=== PATIENT | female | born 1990 | race Caucasian/White ===

== ENCOUNTER → 2019-02-06 | Outpatient (CLI) | payer SELFPAY ==
[2018-07-21 12:10] VITALS: BMI 23.4
[2019-02-06 13:10] LABS: ALB/GLOB Ratio 1.1 RATIO (0.9-2.4); AST(SGOT) 13 U/L (15-37); Alanine Aminotransfer ALT/SGPT 21 U/L (13-56); Albumin, Serum 3.6 g/dL (3.2-5.0); Alkaline Phosphatase 47 U/L (45-117); Anion Gap 8 (5-15); BUN 10 mg/dL (7-18); BUN/Creat Ratio 10.5 RATIO (10-20); Calcium,Total 8.9 mg/dL (8.5-10.1); Chloride 105 mmol/L (98-107); Cholesterol 184 mg/dL (200); Creatinine, Serum 0.95 mg/dL (0.55-1.02); EST Glomerular Filtration Rate 74 mL/min (>60); Est Glom Filt Rate - Afr Amer 90 mL/min (>60); Free T3 2.9 pg/mL (2.18-3.98); Globulin 3.3 g/dL (2.2-4.2); Glucose 75 mg/dL (74-106); High Density Lipoprotein 69 mg/dL; Potassium 3.9 mmol/L (3.5-5.1); Protein, Total 6.9 g/dL (6.4-8.2); Sodium Level 139 mmol/L (136-145); T4 Free Direct 1.26 ng/dL (0.76-1.46); Thyroid Stim Hormone (TSH) 0.77 uIU/mL (0.358-3.74); Triglycerides 93 mg/dL; Very Low Density Lipoprotein 19 mg/dL (5-40)
== END | disposition home or self-care (01) ==
LOC: BIMLAB 09:00
PROVIDERS: Visit Provider Internal Medicine Endocrinology, Diabetes & Metabolism
DX: E03.9 Hypothyroidism, unspecified (principal); E28.2 Polycystic ovarian syndrome
CPT/HCPCS: 36415; 80053; 80061; 83036; 84439; 84443; 84481

== ENCOUNTER → 2019-12-16 | Outpatient (CLI) | payer OTHER, SELFPAY ==
[2019-11-11 11:20] VITALS: BMI 23.4
[2019-12-16 04:55] LABS: Absolute Lymphocyte Count 4.15 X10^3/uL (0.83-4.51); Absolute Neutrophil Count 5.2 X10^3/uL (2.0-7.7); Basophil# 0.04 X10^3/uL; Basophil% 0.4 % (0-1); Eosinophil# 0.18 X10^3/uL; Eosinophils% 1.8 % (0-5); Hematocrit 39.9 % (37-47); Hemoglobin 13.1 g/dL (12.0-15.0); Lymphocyte # 4.15 X10^3/ul; Lymphocyte % 40.5 % (19-41); Mean Corp Hgb Conc 32.8 g/dL (32-36); Mean Corpuscular Hgb 30.2 pg (27.0-32.0); Mean Corpuscular Volume 91.9 fL (81-99); Mean Platelet Vol. 9.6 fl (6.2-12.0); Monocyte# 0.61 X10^3/uL; NRBC Flagged by Analyzer 0 % (0-5); Neutrophil # 5.24 X10^3/uL (2.7-7.7); Neutrophil % 51.1 % (47-70); Platelet Count 390 K/mm3 (150-450); RBC Distribution Width CV 11.9 % (11.6-14.6); RBC Distribution Width SD 40.5 fl (35.1-43.9); Red Blood Count 4.34 M/mm3 (4.2-5.4); White Blood Count 10.2 K/mm3 (4.4-11.0)
[2019-12-16 05:13] LABS: ALB/GLOB Ratio 1.1 RATIO (0.9-2.4); AST(SGOT) 14 U/L (15-37); Alanine Aminotransfer ALT/SGPT 16 U/L (13-56); Albumin, Serum 3.8 g/dL (3.2-5.0); Alkaline Phosphatase 54 U/L (45-117); Anion Gap 6 (5-15); BUN 16 mg/dL (7-18); BUN/Creat Ratio 16.2 RATIO (10-20); Bilirubin, Direct 0.13 mg/dL (0.00-0.30); Calcium,Total 8.8 mg/dL (8.5-10.1); Chloride 105 mmol/L (98-107); Cholesterol 232 mg/dL (200); Creatinine, Serum 0.99 mg/dL (0.55-1.02); EST Glomerular Filtration Rate 71 mL/min (>60); Est Glom Filt Rate - Afr Amer 85 mL/min (>60); Globulin 3.4 g/dL (2.2-4.2); Glucose 97 mg/dL (74-106); High Density Lipoprotein 76 mg/dL; LDH 149 U/L (84-246); Phosphorus 3.9 mg/dL (2.5-4.9); Potassium 3.6 mmol/L (3.5-5.1); Protein, Total 7.2 g/dL (6.4-8.2); Sodium Level 138 mmol/L (136-145); Triglycerides 92 mg/dL; Very Low Density Lipoprotein 18 mg/dL (5-40)
[2019-12-16 09:12] LABS: Color, Urine Yellow (Yellow); Glucose, Dipstick Normal (Normal); Ketone-Dipstick Negative (Negative); Leukocyte Esterase-Dipstick Negative /ul (Negative); Nitrite-Dipstick Negative (Negative); Occult Blood-Urine 10 /ul (Negative); Protein-Dipstick Negative (Negative); Specific Gravity, Urine 1.025 (1.002-1.030); Urine Bilirubin Dipstick Negative (Negative); Urine Clarity Clear (Clear); Urine Urobilinogen Normal (Normal)
== END | disposition home or self-care (01) ==
LOC: LAB 03:19
PROVIDERS: PCP Internal Medicine; Referring Provider Internal Medicine; Visit Provider Internal Medicine
DX: Z00.00 Encounter for general adult medical examination without abnormal findings (principal)

== ENCOUNTER → 2020-04-02 05:52 | Outpatient (CLI) | payer OTHER, SELFPAY ==
[2020-01-23 15:10] VITALS: BMI 23.4
[2020-04-02 06:39] LABS: ALB/GLOB Ratio 1.3 RATIO (0.9-2.4); AST(SGOT) 13 U/L (15-37); Alanine Aminotransfer ALT/SGPT 19 U/L (13-56); Albumin, Serum 3.8 g/dL (3.2-5.0); Alkaline Phosphatase 53 U/L (45-117); Anion Gap 3 (5-15); BUN 11 mg/dL (7-18); BUN/Creat Ratio 12.2 RATIO (10-20); Calcium,Total 8.8 mg/dL (8.5-10.1); Chloride 105 mmol/L (98-107); Cholesterol 195 mg/dL (200); EST Glomerular Filtration Rate 78 mL/min (>60); Est Glom Filt Rate - Afr Amer 95 mL/min (>60); Glucose 84 mg/dL (74-106); High Density Lipoprotein 72 mg/dL; Potassium 3.9 mmol/L (3.5-5.1); Protein, Total 6.8 g/dL (6.4-8.2); Sodium Level 138 mmol/L (136-145); T4 Free Direct 1.32 ng/dL (0.76-1.46); Thyroid Stim Hormone (TSH) 0.27 uIU/mL (0.358-3.74); Triglycerides 61 mg/dL; Very Low Density Lipoprotein 12 mg/dL (5-40)
[2020-04-02 08:20] LABS: Hemoglobin A1c 4.9 % (3.8-5.6)
== END ==
PROVIDERS: Referring Provider Internal Medicine Endocrinology, Diabetes & Metabolism; Visit Provider Internal Medicine Endocrinology, Diabetes & Metabolism
DX: E03.9 Hypothyroidism, unspecified (principal); E28.2 Polycystic ovarian syndrome
CPT/HCPCS: 36415; 80053; 80061; 83036; 84439; 84443

== ENCOUNTER → 2020-06-02 | Outpatient (CLI) | payer OTHER, SELFPAY ==
[2020-06-02 10:39] VITALS: BMI 25.9
[2020-06-02 18:03] LABS: Amphetamine Urine VISTA NEGATIVE (<1000 ng/mL); Barbiturate Urine VISTA NEGATIVE (< 200 ng/mL); Benzodiazepine Urine VISTA NEGATIVE (< 200 ng/mL); Cocaine Urine VISTA NEGATIVE (< 300 ng/mL); Ecstacy Urine VISTA NEGATIVE (< 500 ng/mL); Methadone Urine VISTA NEGATIVE (< 300 ng/mL); PCP Urine VISTA NEGATIVE (< 25 ng/mL); THC Urine VISTA NEGATIVE (< 50 ng/mL); Vista UDS pH Range 6
[2020-06-05 04:08] LABS: Chlamydia By Nucleic Acid AMP Negative (Negative)
[2020-06-05 12:35] LABS: Gonococcus By Nucleic Acid AMP Negative (Negative)
== END | disposition home or self-care (01) ==
PROVIDERS: PCP Internal Medicine; Referring Provider Obstetrics & Gynecology; Visit Provider Obstetrics & Gynecology
DX: Z34.90 Encounter for supervision of normal pregnancy, unspecified, unspecified trimester (principal)
CPT/HCPCS: 80307; 87086; 87088; 87491; 87591

== ENCOUNTER 2020-06-11 11:53 | Emergency (ER) | payer OTHER, SELFPAY ==
[2020-06-02 10:39] VITALS: BMI 25.9
[2020-06-11 11:54] VITALS: BP 130/83; PULSE 85; RESP 16; TEMP 36.4; O2SAT 100; BMI 26.6
--- NOTE | 2020-06-11 12:21 | ED.DCSUM_ITS ---
History of Present Illness Chief Complaint: Fall Informant: Patient Occurred: Today Mechanism/Context: Slip Usually ambulates: Without assistance Quality of Pain: Aching Narrative: Patient is a 29-year-old female without any significant medical history presenting for evaluation after fall. Patient was doing a home blood draw for work when she slipped on the ice walking back to her car. She states her legs came out from under her and she landed on her buttocks. She denies hitting her head or any loss consciousness. She is not on any anticoagulants. She is having some mild pain in her left groin area and a cramping sensation of her lower pelvic. Patient also has some pain over her coccyx. Patient is concerned because she is 9 weeks . She denies any vaginal bleeding. She not had any cramping prior to this fall. Her SAFETY AND HEALTH MANAGER is Dr. Jame Smith. Patient states the main reason she came in is because she wanted make sure that her baby is okay. This is her first . Past Medical History - Allergies and Home Meds Allergies/Adverse Reactions: Allergies amoxicillin Allergy (Unknown, Verified 06/11/20 11:54) rash Penicillins Allergy (Unknown, Verified 06/11/20 11:54) rash adhesive tape Adverse Reaction (Unknown, Verified 06/11/20 11:54) pulls skin off Primary Care Physician: Caron Summers MD [Primary Care Provider] - Past Medical History: None Surgical History: noncontributory Smoking Status: Never smoker Review of Systems General: Denies: Chills, Fever, Sweats Eyes: Denies: Visual changes - bilaterally, Diplopia ENT: Denies: Rhinorrhea, Sore throat Cardiovascular: Denies: Chest pain, Palpitations Respiratory: Denies: Dyspnea, Cough, Dyspnea on exertion Gastrointestinal: Reports: Abdominal pain - Pelvic cramping. Denies: Nausea, Vomiting, Diarrhea, Melena, Hematochezia Genitourinary: Denies: Dysuria, Hematuria, Frequency Musculoskeletal: Reports: Back pain - Buttocks, Extremity Pain - Groin left Skin: Denies: Rash, Wounds Neurological: Denies: Headache, Weakness, Numbness Physical Exam Vital Signs/Narrative: Vital Signs Temp Pulse Resp BP Pulse Ox 06/11/20 11:54 97.6 F L 85 16 130/83 H 100 Inital Vital Signs reviewed: Yes General: Well nourished, Well developed Head: Normocephalic, Atraumatic Eyes: Perrl, EOMI ENT: No trauma. Negative for: Nasal trauma, Nasal septal hematoma Neck: Nontender, Full ROM. Negative for: Spinal Tenderness, Paraspinal Tenderness Cardiovascular: Regular rate, Regular rhythm, No murmurs Respiratory: No distress, CTA bilaterally, Chest nontender Abdomen: Soft, Nontender, Nondistended, Normal bowel sounds. Negative for: Guarding, Rebound tenderness Back: Nontender Extremeties: No deformity. Normal range of motion. No palpable tenderness palpation. Pelvis is stable. Skin: Normal color, No rash Neurological: Alert, Oriented x3, Cranial nerves II-XII grossly intact, Normal Strength, Normal Sensation Psychological: Normal affect Diagnostic/Tx/Re-eval - Medical Decision Making Patient evaluated after mechanical fall. Workmen's Compensation paperwork is filed. Patient is no obvious injury. Bedside ultrasound performed by myself shows single intrauterine gestation and I am able to visualize cardiac motion that appears to be an appropriate rate. I am not able to obtain actual heart rates however. No obvious free fluid is noted. Patient is given reassurance and instructed follow-up with her SAFETY AND HEALTH MANAGER as needed. She is instructed take Tylenol as needed for pain. Patient is counseled on signs and symptoms requiring return to the emergency room. Patient verbalizes agreement and understand this plan. Patient discharged home in stable and improved condition. ED Disposition - Plan for ED Patient: Disposition: Home or Assisted Living Diagnosis: Accident due to mechanical fall without injury, First trimester Instructions: ED Mechanical Fall Referrals: Caron Summers MD [Primary Care Provider] - Zenia Hensley MD [STAFF PHYSICIAN] - Additional Instructions: Take Tylenol as needed for pain. You do not have any obvious injuries from the fall. You may return to work. Follow-up with your SAFETY AND HEALTH MANAGER as needed.
== END 2020-06-11 12:49 | disposition home or self-care (01) ==
LOC: ED 12:43
PROVIDERS: Emergency Provider Emergency Medicine; PCP Internal Medicine
DX: Z34.01 Encounter for supervision of normal first pregnancy, first trimester (principal); Z3A.09 9 weeks gestation of pregnancy; W00.0XXA Fall on same level due to ice and snow, initial encounter; Y93.01 Activity, walking, marching and hiking; Y92.89 Other specified places as the place of occurrence of the external cause; Y99.0 Civilian activity done for income or pay
CPT/HCPCS: 99282

== ENCOUNTER → 2020-06-19 11:40 | Outpatient (CLI) | payer OTHER, SELFPAY ==
[2020-06-11 11:54] VITALS: BMI 26.6
[2020-06-19 12:30] LABS: Absolute Lymphocyte Count 2.64 X10^3/uL (0.83-4.51); Absolute Neutrophil Count 10.7 X10^3/uL (2.0-7.7); Basophil# 0.04 X10^3/uL; Basophil% 0.3 % (0-1); Eosinophil# 0.08 X10^3/uL; Eosinophils% 0.6 % (0-5); Hematocrit 38.9 % (37-47); Hemoglobin 12.8 g/dL (12.0-15.0); Lymphocyte # 2.64 X10^3/ul (4.0); Lymphocyte % 18.6 % (19-41); Mean Corp Hgb Conc 32.9 g/dL (32-36); Mean Corpuscular Hgb 29.6 pg (27.0-32.0); Mean Platelet Vol. 8.8 fl (6.2-12.0); Monocyte# 0.73 X10^3/uL; Monocyte% 5.1 % (0-10); NRBC Flagged by Analyzer 0 % (0-5); Neutrophil # 10.65 X10^3/uL (2.7-7.7); Platelet Count 378 K/mm3 (150-450); RBC Distribution Width CV 12.6 % (11.6-14.6); RBC Distribution Width SD 41.3 fl (35.1-43.9); Red Blood Count 4.32 M/mm3 (4.2-5.4); White Blood Count 14.2 K/mm3 (4.4-11.0)
[2020-06-19 13:40] LABS: T4 Free Direct 1.59 ng/dL (0.76-1.46); Thyroid Stim Hormone (TSH) 0.57 uIU/mL (0.358-3.74)
[2020-06-19 13:43] LABS: HIV - WCH Non-Reactive (Nonreactive); Hepatitis B Surface Antigen Non-Reactive (Nonreactive); Hepatitis C Antibody Non-Reactive (Nonreactive); Rubella IgG Reactive (Nonreactive); Syphilis Antibodies Non-reactive
== END ==
PROVIDERS: Internal Medicine Endocrinology, Diabetes & Metabolism; PCP Internal Medicine; Referring Provider Obstetrics & Gynecology; Visit Provider Obstetrics & Gynecology
DX: O99.280 Endocrine, nutritional and metabolic diseases complicating pregnancy, unspecified trimester (principal); E03.8 Other specified hypothyroidism; E06.3 Autoimmune thyroiditis; Z3A.00 Weeks of gestation of pregnancy not specified
CPT/HCPCS: 36415; 84439; 84443; 85025; 86592; 86703; 86762; 86803; 86850; 86900; 86901; 87340

== ENCOUNTER → 2020-08-18 12:22 | Outpatient (CLI) | payer OTHER, SELFPAY ==
[2020-07-03 10:01] VITALS: BMI 25.9
--- NOTE | 2020-08-18 12:24 | US_ITS ---
STUDY: SECOND AND THIRD TRIMESTER OBSTETRICAL ULTRASOUND REASON FOR EXAM: Female, 30 years old anatomy LMP: 04/03/2020. TECHNIQUE: Transabdominal and Transvaginal TECHNICAL QUALITY: Adequate. PRIOR ULTRASOUND: None. FINDINGS: There is a single intrauterine fetus. The fetus is in a cephalic presentation. There is demonstrated cardiac activity with a heart rate of 145 bpm. There is a normal amniotic fluid volume. The largest amniotic fluid pocket measures 4.2 sono by 3.7 cm. The amniotic fluid index (SURENDRA) is within normal limits. The placenta is fundal in location. There are Grade 1 placental changes. The cervix measures 4.7 cm in length. The adnexal regions are not visualized. BIOMETRY: BPD: 4.55 cm: 19 weeks, 5 days HC: 17.13 cm: 19 weeks, 5 days AC: 14.42 cm: 19 weeks, 5 days FL: 3.08 cm: 9 weeks, 3 days CI: 78.6% FL/BPD: 67.8% FL/HC: FL/AC: 21.4% HC/AC: 1.19 age by current US: 19 weeks, 5 days. JANET by current US: 01/07/2021. Estimated weight: 307 grams, +/- 46 grams, 50 %. Age by LMP: 19 weeks, 4 days. JANET by LMP: 01/08/2021. ANATOMY: Gender: Female Cranium: Normal lateral ventricles. Normal choroid plexus. Normal cerebellum. Normal cisterna magna. Normal face, nose and lips. Chest: Normal 4-chamber heart. Abdomen/Pelvis: Normal diaphragm. Normal stomach. Normal abdominal wall. Normal cord insertion. Normal 3 vessel cord. Normal kidneys. Normal bladder. Spine: Normal cervical spine. Normal thoracic spine. Normal lumbar spine. Normal sacrum. Extremities: Normal bilateral upper extremities. Normal bilateral lower extremities. IMPRESSION: Single live intrauterine gestation with a mean gestational age of 19 weeks and 5 days. Electronically Signed: Carter Burroughs MD at 15:30 EDT , Service support , STUDY: FIRST TRIMESTER OBSTETRICAL ULTRASOUND REASON FOR EXAM: Female, 30 years old anatomy LMP: 04/03/2020. TECHNIQUE: Transvaginal TECHNICAL QUALITY: Adequate. PRIOR ULTRASOUND: None. FINDINGS: Transvaginal examination was performed for measurement of the cervix. The cervix measures 4.7 cm. US/OB Anatomy Scan IMPRESSION: The cervix measures 4.7 cm in length. Electronically Signed: Carter Burroughs MD at 15:30 EDT , Service support ,
== END ==
PROVIDERS: PCP Internal Medicine; Referring Provider Obstetrics & Gynecology; Visit Provider Obstetrics & Gynecology
DX: Z34.90 Encounter for supervision of normal pregnancy, unspecified, unspecified trimester (principal)
CPT/HCPCS: 76805; 76817

== ENCOUNTER → 2020-09-16 12:57 | Outpatient (CLI) | payer OTHER, SELFPAY ==
[2020-08-27 08:48] VITALS: BMI 26.8
[2020-09-16 13:55] LABS: T4 Free Direct 1.21 ng/dL (0.76-1.46)
== END ==
PROVIDERS: PCP Internal Medicine; Referring Provider Internal Medicine Endocrinology, Diabetes & Metabolism; Visit Provider Internal Medicine Endocrinology, Diabetes & Metabolism
DX: E06.3 Autoimmune thyroiditis (principal); E03.8 Other specified hypothyroidism
CPT/HCPCS: 36415; 84439; 84443

== ENCOUNTER → 2020-10-16 07:00 | Outpatient (CLI) | payer OTHER, SELFPAY ==
[2020-09-25 09:22] VITALS: BMI 26.8
[2020-10-16 08:09] LABS: Absolute Lymphocyte Count 2.07 X10^3/uL (0.83-4.51); Basophil# 0.04 X10^3/uL; Basophil% 0.3 % (0-1); Eosinophils% 0.8 % (0-5); Hematocrit 36.9 % (37-47); Hemoglobin 12.3 g/dL (12.0-15.0); Lymphocyte # 2.07 X10^3/ul (0.83-4.51); Mean Corp Hgb Conc 33.3 g/dL (32-36); Mean Corpuscular Hgb 31.3 pg (27.0-32.0); Mean Corpuscular Volume 93.9 fL (81-99); Mean Platelet Vol. 9.2 fl (6.2-12.0); Monocyte# 0.66 X10^3/uL; Monocyte% 5.1 % (0-10); NRBC Flagged by Analyzer 0 % (0-5); Neutrophil # 9.95 X10^3/uL (2.7-7.7); Neutrophil % 77.2 % (47-70); Platelet Count 298 K/mm3 (150-450); RBC Distribution Width SD 44.6 fl (35.1-43.9); Red Blood Count 3.93 M/mm3 (4.2-5.4); White Blood Count 12.9 K/mm3 (4.4-11.0)
[2020-10-16 08:31] LABS: Glucose Challenge Gest 1H 50g 81 mg/dL (70-140)
== END ==
PROVIDERS: PCP Internal Medicine; Referring Provider Obstetrics & Gynecology; Visit Provider Obstetrics & Gynecology
DX: O09.90 Supervision of high risk pregnancy, unspecified, unspecified trimester (principal); Z3A.00 Weeks of gestation of pregnancy not specified
CPT/HCPCS: 36415; 82950; 85025

== ENCOUNTER → 2020-12-15 | Outpatient (CLI) | payer OTHER, SELFPAY | END | disposition home or self-care (01) | LOC: LABSPEC 15:32 | PROVIDERS: PCP Internal Medicine; Visit Provider Obstetrics & Gynecology | DX: Z33.1 Pregnant state, incidental (principal); Z3A.36 36 weeks gestation of pregnancy | CPT/HCPCS: 87077; 87081; 87186 ==

== ENCOUNTER → 2020-12-23 16:30 | Outpatient (CLI) | payer OTHER, SELFPAY ==
--- NOTE | 2020-12-23 16:32 | US_ITS ---
STUDY: OBSTETRICAL ULTRASOUND - BIOPHYSICAL PROFILE REASON FOR EXAM: Female, 30 years old decreased movement LMP: 04/03/2020 PRIOR ULTRASOUND: 08/18/2020 TECHNIQUE: Transabdominal TECHNICAL QUALITY: Adequate. FINDINGS: There is a single intrauterine fetus. The fetus is in a cephalic presentation. There is demonstrated cardiac activity with a heart rate of 144 bpm. There is a normal amniotic fluid volume. The largest amniotic fluid pocket measures 4.6 cm. The amniotic fluid index (SURENDRA) is 11 cm. The placenta is posterior in location and is not low lying. There are Grade 2 placental changes. Age by LMP: 37 weeks, 5 days. JANET by LMP: 01/08/2021. BIOPHYSICAL PROFILE: Breathing Movements (FBM): 2 Gross Body Movements (GBM): 2 Tone (FT): 2 Amniotic Fluid Volume (AFV): 2 TOTAL SCORE: 8 / 8 US/Biophysical Prof W/O Non Stres IMPRESSION: Normal biophysical profile of 8/8. Electronically Signed: Rl Carty MD at 17:21 EDT , Service support ,
== END ==
PROVIDERS: PCP Internal Medicine; Referring Provider Obstetrics & Gynecology; Visit Provider Obstetrics & Gynecology
DX: O36.8190 Decreased fetal movements, unspecified trimester, not applicable or unspecified (principal); Z3A.00 Weeks of gestation of pregnancy not specified
CPT/HCPCS: 76819

== ENCOUNTER 2020-12-29 02:00 | Inpatient (IN) | payer OTHER, SELFPAY ==
[2020-12-29] VITALS (69 sets, daily range): BP systolic 99–147; BP diastolic 57–90; PULSE 59–97; RESP 16–18; TEMP 35.9–37.1; O2SAT 93–100; BMI 30.4
[2020-12-29] MEDS: Lactated Ringers 500 ML 999 ML IV (02:15)
[2020-12-29 02:41] LABS: Absolute Lymphocyte Count 2.84 X10^3/uL (0.83-4.51); Absolute Neutrophil Count 13.1 X10^3/uL (2.0-7.7); Basophil# 0.05 X10^3/uL; Basophil% 0.3 % (0-1); Eosinophil# 0.15 X10^3/uL; Eosinophils% 0.9 % (0-5); Hematocrit 38.3 % (37-47); Hemoglobin 13.3 g/dL (12.0-15.0); Lymphocyte # 2.84 X10^3/ul (0.83-4.51); Lymphocyte % 16.5 % (19-41); Mean Corp Hgb Conc 34.7 g/dL (32-36); Mean Corpuscular Hgb 31.4 pg (27.0-32.0); Mean Corpuscular Volume 90.5 fL (81-99); Mean Platelet Vol. 10.2 fl (6.2-12.0); Monocyte# 0.95 X10^3/uL; Monocyte% 5.5 % (0-10); NRBC Flagged by Analyzer 0 % (0-5); Neutrophil # 13.08 X10^3/uL (2.7-7.7); Neutrophil % 76.2 % (47-70); Platelet Count 293 K/mm3 (150-450); RBC Distribution Width CV 12.4 % (11.6-14.6); RBC Distribution Width SD 41.1 fl (35.1-43.9); Red Blood Count 4.23 M/mm3 (4.2-5.4); White Blood Count 17.2 K/mm3 (4.4-11.0)
[2020-12-29] MEDS: Lactated Ringers 1,000 ML 100 ML IV (02:46)
[2020-12-29] MEDS: Ondansetron 4 MG/2 ML Vial IV (02:47)
[2020-12-29] MEDS: 0.9% Saline Lock 10 ML Syringe IV ×2 (02:48→10:33)
[2020-12-29] MEDS: fentaNYL-bupivacaine (epidural) 100 ML BAG EPIDURAL (03:25)
[2020-12-29] MEDS: proCHLORPERazine 10 MG/2 ML Vial IV (05:02)
--- NOTE | 2020-12-29 07:15 | HP.PCM.OB_ITS ---
HPI - General General Date of Admission: 12/29/20 HPI Narrative JASON JONES, is a 30 F at 38/4 who presents in active labor Maternal Data Information JANET Calculator Estimated Delivery Date Method Current WG Current Estimate 01/08/21 LMP (Certain) 38w 4d Other Estimates 01/06/21 Ultrasound #1 38w 6d PFSH PFS Medical History (Updated 12/29/20 @ 07:[address] Lucille Christianson MD) Asthma Chronic neck and back pain Kelsy's disease Kelsy's disease History of tetanus, diphtheria, and acellular pertussis booster vaccination (Tdap) Hypothyroidism Limb weakness Polycystic ovary disease Prediabetes Seasonal allergies Severe headache Shortness of breath Home Medications cranberry 400 mg capsule 400 mg PO DAILY 06/27/19 [History Last Taken 12/28/20] levothyroxine 112 mcg capsule 112 mcg PO .Mon-Sat only #90 cap 04/11/20 [Rx Last Taken 12/28/20] doxylamine succinate 25 mg tablet 25 mg PO QHS PRN 05/26/20 [History Last Taken 12/28/20] multivitamin no.47-iron fum 27 mg-folate no.1 1 mg-dha 300 mg capsule cap PO 05/26/20 [History Last Taken 12/28/20] pyridoxine (vitamin B6) 100 mg tablet 100 mg PO DAILY 05/26/20 [History Last Taken 12/29/20] citalopram 40 mg tablet 40 mg PO DAILY #90 tablet 07/29/20 [Rx Last Taken 12/28/20] Allergy/AdvReac Type Severity Reaction Status Date / Time amoxicillin Allergy Unknown rash Verified 12/29/20 01:48 Penicillins Allergy Unknown rash Verified 12/29/20 01:48 adhesive tape AdvReac Unknown pulls skin Verified 12/29/20 01:48 off Family History Grandfather Heart disease Cancer melanoma Mother Breast cancer with mets Grandmother Heart disease Arthritis Dementia Sister Seizures Other CHF (congestive heart failure) Depression Surgical History History of repair of ACL Social History adopted: No household members: spouse current occupational status: employed current occupation: [employer] Smoking Status: Never smoker second hand exposure: No alcohol intake: current alcohol intake frequency: a few times a month details: not while substance use type: does not use what type of physical activity do you participate in: none seatbelt use: always do you feel safe at home: Yes additional social history: José History 1 Elective abortions Hx Para 0 Spontaneous abortions Hx # Term Pregnancies Ectopic pregnancies Hx # Pregnancies Multiple births # of living children Visit Details Expected Delivery Route/Plan Labor Preferences- CB/BF classes: yes labor support person: José labor intervention preferences: open to standard interventions pain management options preferred: open to epidural cut cord/dad catch: [] : yes PP control planned: IUD at 6w PP visit discussed possible routes of delivery and associated risks: [] special requests: [] Plans covid vaccine: non immune, counseled regarding risk of covid in vs vaccination and declined injection. flu vaccine: given tdap vaccine: given rhogam: na LARC form signed: 11/04 movement and labor precautions reviewed. Problem list reviewed and updated with the most current plan of care details and appropriate orders placed. Relevant counseling for the gestational age provided. Continue routine care and follow up unless otherwise noted in visit notes/problem list details OB Flowsheet Initial Weight: 160 lb Date -?-?-?-?-?-?-?-?-?-?-?-?- EGA Weight BP Urine Prot -?-?-?--?-?-?-?-?-?-?-?-?- Glucose FHR FuHt Pres Dilation -?-?-?-?-?-?-?-?-?--?-?-?- Effaced St Visit Note 06/02/20 -?-?-?-?-?-?-?-?-?-?-?-?- 8w 4d 161 lb (+16 oz) 132/90 -?-?-?-?-?-?-?-?-?-?-?-?- 180 -?-?-?-?-?-?-?-?-?-?-?-?- SM- CRL 2 cm con s with LMP 07/03/20 -?-?-?-?-?-?-?-?--?-?-?-?- 13w 0d 159 lb (-16 oz) 120/82 -?-?-?-?-?-?-?-?-?-?-?-?- 160 -?-?-?-?-?-?-?-?-?-?-?-?- Sm- no vb lof Sm- no vb lof discussed naus ea, start phenergan 07/29/20 -?-?-?-?-?-?-?-?-?-?-?-?- 16w 5d 162 lb 2 oz (+2 lb 2 oz) 116/70 Negative -?--?-?-?-?-?-?-?-?-?-?-?- Negative 148 -?-?-?-?-?-?-?-?-?-?-?-?- -No Vb, LOF. M FM US ordered. -No Vb, LOF. MFM US ordere d. Still struggling with mood, anxiety. Increase celexa to 40mg daily 08/27/20 -?-?-?-?-?-?-?-?-?-?-?-?- 20w 6d 166 lb 2 oz (+6 lb 2 oz) 132/86 Negative -?-?-?-?-?-?-?-?-?-?-?-?- Negative 150 -?-?-?-?-?-?-?-?-?-?-?-?- GP - no LOF, VB, DFM, ctx. Anatomy US reviewed. 09/25/20 -?-?-?-?-?-?-?-?-?-?-?-?- 25w 0d 174 lb (+14 lb) 130/82 Negative -?-?-?-?-?-?-?-?-?-?-?-?- Negative 140 25 -?-?-?-?-?-?-?-?-?-?-?-?- GP - no LOF, VB, DFM, ctx. GCT next visit. 10/22/20 -?-?-?-?-?-?-?-?-?-?-?-?- 28w 6d 174 lb 6 oz (+14 lb 6 oz) 120/86 Negative -?-?-?-?-?-?-?-?-?-?-?-?- Negative 135 28 -?-?-?-?-?-?-?-?-?-?-?-?- GP - no LOF, VB, DFM, ctx. Discussed treatment for low back pain 11/04/20 -?-?-?-?-?-?-?-?-?-?-?-?- 30w 5d 178 lb 6 oz (+18 lb 6 oz) 138/80 Negative -?-?-?-?-?-?-?-?-?-?-?-?- Negative 130 30 -?-?-?-?-?-?-?-?-?-?-?-?- GP - no LOF, VB, DFM, ctx. Discussed control. LARC form signed. 11/16/20 -?-?-?-?-?-?-?-?-?-?-?-?- 32w 3d 183 lb (+23 lb) 122/78 -?-?-?-?-?-?-?-?-?-?-?-?- 130 33 -?-?-?-?-?-?-?-?-?-?-?-?- SM- no vb lof go od fm no regular ctx co dull aching across belly no fever no bowel symptoms 12/02/20 -?-?-?-?-?--?-?-?-?-?-?-?- 34w 5d 188 lb (+28 lb) 136/74 Negative -?-?-?-?-?-?-?-?-?-?-?-?- Negative 134 34 -?-?-?-?-?-?-?-?-?-?-?-?- MH-NO VB, LOF or reg CTX. Good FM. Plans IUD 6wk pp 12/15/20 -?-?-?-?-?-?-?-?-?-?-?-?- 36w 4d 191 lb (+31 lb) 120/88 Negative -?-?-?-?-?-?-?-?-?-?-?-?- Negative 140 37 Cephalic 1 -?-?-?-?-?-?-?-?-?-?-?-?- 70 -2 SM- n ovb lof good fm nor egular ctx 12/21/20 -?-?-?-?-?-?-?-?-?-?-?-?- 37w 3d 189 lb (+29 lb) 132/84 Negative -?-?-?-?-?-?-?-?-?-?-?-?- Negative 140 38 Cephalic 1 -?-?-?-?-?-?-?-?-?-?-?-?- 70 -4 SM- no vb lof good fm nro egualr ctx 12/29/20 -?-?-?-?-?-?-?-?-?-?-?-?- 38w 4d 188 lb 6.4 oz (+28 lb 6.4 oz) 138/82 141/87 147/90 139/62 134/85 133/73 125/66 126/78 136/79 126/73 99/57 102/59 128/73 108/65 -?-?-?-?-?-?-?-?-?-?-?-?- -?-?-?-?-?-?-?-?-?-?-?-?- NST FHR Rate Baby A Baseline: 140 Variability:: Moderate Accelerations:: 15 x 15 Decelerations:: Variable (occasional) FHR Category:: Category II Uterine Activity:: q3-5 min ROS Eyes Eyes: Reports systems reviewed and no addt'l complaints, except as documented ENT HEENT: Reports systems reviewed and no addt'l complaints, except as documented Cardiovascular Cardiovascular: Reports systems reviewed and no addt'l complaints, except as documented Respiratory/Chest Respiratory/Chest: Reports systems reviewed and no addt'l complaints, except as documented Gastrointestinal Gastrointestinal: Reports systems reviewed and no addt'l complaints, except as documented Genitourinary Genitourinary: Reports systems reviewed and no addt'l complaints, except as documented Musculoskeletal Musculoskeletal: Reports systems reviewed and no addt'l complaints, except as documented Integumentary Integumentary: Reports systems reviewed and no addt'l complaints, except as documented Neurologic Neurologic: Reports systems reviewed and no addt'l complaints, except as documented Psychiatric Psychiatric: Reports systems reviewed and no addt'l complaints, except as documented Endocrine Endocrinology: Reports systems reviewed and no addt'l complaints, except as documented Hematologic/Lymphatic Hematologic/Lymphatic: Reports systems reviewed and no addt'l complaints, except as documented Allergic/Immunologic Allergic/Immunologic: Reports systems reviewed and no addt'l complaints, except as documented Vital Signs Vital Signs Vital Signs: 12/29/20 01:47 12/29/20 01:53 12/29/20 02:27 Temperature 96.6 F L 96.6 F L Temperature Source Pulse Rate 59 L 97 Blood Pressure 138/82 H BP Systolic 138 BP Diastolic 82 Pulse Ox 94 99 12/29/20 02:32 12/29/20 03:09 12/29/20 03:14 Temperature Temperature Source Pulse Rate 79 78 84 Blood Pressure 141/87 H BP Systolic 141 BP Diastolic 87 Pulse Ox 99 99 99 12/29/20 03:19 12/29/20 03:20 12/29/20 03:21 Temperature Temperature Source Pulse Rate 81 67 Blood Pressure 147/90 H 139/62 H BP Systolic 147 139 BP Diastolic 90 62 Pulse Ox 99 12/29/20 03:26 12/29/20 03:29 12/29/20 03:31 Temperature Temperature Source Pulse Rate 78 71 76 Blood Pressure 134/85 H 133/73 H BP Systolic 134 133 BP Diastolic 85 73 Pulse Ox 100 100 12/29/20 03:34 12/29/20 03:36 12/29/20 03:41 Temperature Temperature Source Pulse Rate 64 70 Blood Pressure 125/66 H BP Systolic 125 BP Diastolic 66 Pulse Ox 100 99 12/29/20 03:42 12/29/20 03:44 12/29/20 03:46 Temperature Temperature Source Pulse Rate 72 77 72 Blood Pressure 126/78 H 136/79 H BP Systolic 126 136 BP Diastolic 78 79 Pulse Ox 100 12/29/20 03:49 12/29/20 03:51 12/29/20 04:17 Temperature Temperature Source Pulse Rate 62 77 74 Blood Pressure 126/73 H BP Systolic 126 BP Diastolic 73 Pulse Ox 100 99 12/29/20 04:22 12/29/20 04:24 12/29/20 04:27 Temperature Temperature Source Pulse Rate 69 69 69 Blood Pressure 99/57 L BP Systolic 99 BP Diastolic 57 Pulse Ox 100 100 12/29/20 04:30 12/29/20 04:31 12/29/20 05:05 Temperature 98.1 F Temperature Source Pulse Rate 69 76 Blood Pressure 102/59 L 128/73 H BP Systolic 102 128 BP Diastolic 59 73 Pulse Ox 12/29/20 06:38 12/29/20 06:43 12/29/20 06:48 Temperature Temperature Source Pulse Rate 70 66 82 Blood Pressure BP Systolic BP Diastolic Pulse Ox 99 100 99 12/29/20 07:03 12/29/20 07:08 Temperature 97.6 F L 96.6 F L Temperature Source Temporal Pulse Rate 67 Blood Pressure 108/65 BP Systolic 108 BP Diastolic 65 Pulse Ox 98 Weight Weight: 188 lb 6.4 oz Body Mass Index (BMI) 30.4 Physical Exam Const alert, oriented x3, no apparent distress, average body habitus, healthy appearing and well nourished HEENT normocephalic and moist oral mucous membranes Head and Scalp: atraumatic Eyes PERRL and EOMs intact bilaterally Neck full ROM Resp normal respiratory effort, no retractions and no use of accessory muscles Cardio regular rate and regular rhythm GI soft to palpation, non-tender and non-distended Extremity normal to inspection and full ROM Skin no rashes or lesions noted Neuro no focal motor deficits and no sensory deficits noted Psych mental status grossly normal, affect normal, speech normal and activity/motor behavior normal Labs Labs Labs: Blood Type O POSITIVE Antibody Screen NEGATIVE Hct 38.3 % (37-47) Hgb 13.3 g/dL (12.0-15.0) Pap Smear Negative Obstetrics US Syphilis Total Ab Non-reactive Rubella IgG Antibody Reactive (Nonreactive) Hep Bs Antigen Non-Reactive (Nonreactive) Neisseria gonorrhoeae DNA (MADELINE) Negative (Negative) HIV 1&2 Antibody Non-Reactive (Nonreactive) Glucose 1 Hr 50 gm 81 mg/dL (70-140) Assessment & Plan (1) 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 Cruz; currently on Synthroid (2) : QUALIFIERS: Weeks of gestation: 37 weeks Qualified Code(s): Z3A.37 - 37 weeks gestation of COMMENT: declines NIPT/carrier/afp. nl anatomy (3) Anxiety and depression: COMMENT: currently seeing counselor- started Celexa 20mg on 06/09;40mg 07/29/20; 12/02 stable (4) Supervision of high risk , antepartum: COMMENT: PRR JANET: 12/23/20 [place] Spouse: José (5) Family history of neural tube defect: COMMENT: Cousin's 2 children have SB (6) Family history of congenital heart defect: COMMENT: patient's maternal grandmother (7) Family history of Mauro syndrome: COMMENT: José's younger sister (8) Contraception management: COMMENT: IUD at 6 wk pp (9) Positive GBS test: COMMENT: plan ancef in labor, nonanaphylactic to PCN. (10) Active labor at term: PLAN: Patient presents IAL, plan expectant management for , pitocin/AROM PRN if needed. Pain management: plans epidural. GBS positive plan IV Vancomycin. Management of any complications: none I have reviewed the PFSH and made any clinically relevant updates.
[2020-12-29] MEDS: Oxytocin 30 units/NS 500 ml 30 UNITS/500 ML IV.SOLN 334 UNITS IV (08:17)
[2020-12-29] MEDS: Methylergonovine 0.2 MG/ML Ampul IM (08:23)
--- NOTE | 2020-12-29 08:28 | OP.PCM_ITS ---
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 Cruz; currently on Synthroid (4) : QUALIFIERS: Weeks of gestation: 37 weeks Qualified Code(s): Z 3A.37 - 37 weeks gestation of COMMENT: declines NIPT/carrier/afp. nl anatomy (5) Anxiety and depression: COMMENT: currently seeing counselor- started Celexa 20mg on 06/09;40mg 07/29/20; 12/02 stable (6) Supervision of high risk , antepartum: COMMENT: PRR JANET: 12/23/20 [place]! Spouse: José (7) Family history of neural tube defect: COMMENT: Cousin's 2 children have SB (8) Family history of congenital heart defect: COMMENT: patient's maternal grandmother (9) Family history of Mauro syndrome: COMMENT: José's younger sister (10) Contraception management: COMMENT: IUD at 6 wk pp (11) Positive GBS test: COMMENT: plan ancef in labor, nonanaphylactic to PCN. Maternal Data Information JANET Calculator Estimated Delivery Date Method Current WG Current Estimate 01/08/21 LMP (Certain) 38w 4d Other Estimates 01/06/21 Ultrasound #1 38w 6d Vaginal Delivery Maternal Presentation Maternal Presentation: Active Labor Maternal Presentation: 30-year-old G1, P0 at 38 weeks gestation admitted in active labor. Patient made cervical change to complete dilation without augmentation. Operative Information Date of Procedure: 12/29/20 Pre-Operative Diagnosis: Term , active labor Post-Operative Diagnosis: Same Surgery / Procedure Performed: Spontaneous Vaginal Delivery Type of Anesthesia: Epidural Estimated Blood Loss: 250 Findings Description of Procedure: Patient began pushing and delivered the head in the DONNA presentation. The head was delivered atraumatically no nuchal cord was noted. The anterior and posterior shoulders delivered without complication followed by the rest of the infant and the infant was placed on the maternal abdomen. Delayed cord clamping was employed for approximately 60 seconds. Cord was clamped and cut and gentle traction was applied to the cord and the placenta delivered spontaneously immediately following it was noted to be intact with three-vessel cord. The perineum and vagina were inspected and a first-degree perineal laceration was noted and repaired in the standard using 3-0 Vicryl Rapide suture. EBL was 250 cc. Patient and tolerated delivery well. Presentation: Vertex and DONNA Amniotic Membrane Rupture Type: Artificial Amniotic Fluid Description: Lightly stained meconium Placental Delivery Description: Spontaneous Placenta Disposition: [facility] Cord Vessel Description: 3 Vessels Cord Entanglement: None Infant A Gender: Female Delayed Cord Clamping: Yes Post Vaginal Delivery Medications Given After Delivery: IV Pitocin and IM Methergin Episiotomy Description: None Laceration: Midline, Perineal Extension/lac and 1st degree Complication Complications: None Procedures Urinary/Genital [id number]: [id number] Vaginal Delivery [facility]
--- NOTE | 2020-12-29 08:30 | PCM.DC ---
Discharge Instructions Diet Discharge Diet: No restrictions Activity Discharge Activity: Return to Normal Activity, May Not Drive (while taking narcotic pain medications.) and May Shower May resume sexual activity in: 4-6 weeks Dressing / Incision Call your doctor if your incision/area has: Continuous Slow Oozing, Sudden Increased Bleeding, Increased Pain/ Swelling, Increased Redness and Foul Smelling Discharge Follow Up Care When: Call to make an appointment with your doctor in 6 weeks. If you had elevated Blood Pressure or 4th degree laceration you will need to be seen in 2 weeks. Test Results: Test results from this visit will be discussed in further detail at your follow-up appointment, if applicable. Discharge Plan Admission Admit Date/Time: 12/29/20 02:00 Primary Reason for Your Visit: Active labor Attending Provider: Lucille Christianson Primary Care Provider: Caron Summers Instructions Patient Instructions: After a Vaginal Discharge Orders/Prescriptions Prescriptions: New ibuprofen 800 mg tablet 800 mg PO Q8H PRN (Reason: pain) Qty: 30 RF: 1 Continued cranberry 400 mg capsule 400 mg PO DAILY RF: 0 PNV-DHA 27 mg iron-1 mg -300 mg capsule PO RF: 0 Unisom (doxylamine) 25 mg tablet 25 mg PO QHS PRN (Reason: Nausea) RF: 0 pyridoxine (vitamin B6) 100 mg tablet 100 mg PO DAILY RF: 0 citalopram 40 mg tablet 40 mg PO DAILY Qty: 90 RF: 2 levothyroxine 112 mcg capsule 112 mcg capsule 112 mcg PO .Mon-Sat only Qty: 90 RF: 3 Referrals / Follow Up: Caron Summers MD [Primary Care Provider] -
--- NOTE | 2020-12-29 11:02 | NURSING ---
respiratory called for delivery 0805 d/t meconium. Naveed Mike entered room a few minutes after delivery and his services were not needed.
[2020-12-29] MEDS: Citalopram 20 MG Tablet 40 MG PO (12:58)
[2020-12-30 01:12] VITALS: BP 125/75; PULSE 93; RESP 18; TEMP 36.6
[2020-12-30 05:10] VITALS: BP 97/47; PULSE 68; RESP 16; TEMP 36.7
[2020-12-30] MEDS: Levothyroxine 112 MCG Tablet PO (05:18)
[2020-12-30 08:25] VITALS: BP 127/70; PULSE 83; RESP 16; TEMP 36.9
--- NOTE | 2020-12-30 08:32 | PCM.PN.OB ---
Subjective Subjective Patient doing well without complaints. Tolerating PO. Ambulating and voiding without difficulty. Feeding well. Denies chest pain, shortness of breath, calf pain/swelling, fevers, chills, lightheadedness. Objective Data Objective Data Vital Signs: Vital Signs Temp Pulse Resp BP Pulse Ox 98.0 F 68 16 97/47 L 93 12/30/20 05:10 12/30/20 05:10 12/30/20 05:10 12/30/20 05:10 12/29/20 10:29 Oxygen Delivery Method Room Air Weight: 188 lb 6.4 oz Body Mass Index (BMI) 30.4 Intake & Output: Intake and Output for Last 24 Hours 12/28/20 12/29/20 12/30/20 23:59 23:59 23:59 Intake Total 2365.00 / 2365.00 Output Total 1900 / 1900 Balance 465.00 / 465.00 Lab / Micro Data Result Diagrams: 12/29/20 02:15 Physical Exam Const alert and oriented x3 HEENT normocephalic Eyes PERRL Neck full ROM Resp normal respiratory effort GI soft to palpation GI Narrative: FF below U Assessment & Plan (1) Spontaneous vaginal delivery: COMMENT: GP Girl-Ana PLAN: s/p PPD #1 1. routine post delivery care 2. breast feeding- support given 3. rh positive 4. rubella immune 5. home today
[2020-12-30] MEDS: Citalopram 20 MG Tablet 40 MG PO (10:17)
== END 2020-12-30 12:25 | disposition home or self-care (01) | DRG 807 ==
LOC: WPOUT 02:03 → WP 02:03
PROVIDERS: Admitting Provider Obstetrics & Gynecology; PCP Internal Medicine; Visit Provider Obstetrics & Gynecology
DX: O98.82 Other maternal infectious and parasitic diseases complicating childbirth (principal); Z37.0 Single live birth; B95.1 Streptococcus, group B, as the cause of diseases classified elsewhere; O99.284 Endocrine, nutritional and metabolic diseases complicating childbirth; E06.3 Autoimmune thyroiditis; O77.0 Labor and delivery complicated by meconium in amniotic fluid; O70.0 First degree perineal laceration during delivery; Z3A.38 38 weeks gestation of pregnancy
CPT/HCPCS: 59025; 59050; 85025; 86850; 86900; 86901; 99218; J7040; J7120; A4216; G0378; J2405

== ENCOUNTER → 2021-02-22 11:00 | Outpatient (CLI) | payer OTHER, SELFPAY ==
[2021-02-22 11:58] LABS: Absolute Lymphocyte Count 2.35 X10^3/uL (0.83-4.51); Absolute Neutrophil Count 4.9 X10^3/uL (2.0-7.7); Basophil# 0.04 X10^3/uL; Basophil% 0.5 % (0-1); Eosinophil# 0.27 X10^3/uL; Eosinophils% 3.3 % (0-5); Hematocrit 39.2 % (37-47); Hemoglobin 13.2 g/dL (12.0-15.0); Lymphocyte # 2.35 X10^3/ul (0.83-4.51); Lymphocyte % 29.2 % (19-41); Mean Corp Hgb Conc 33.7 g/dL (32-36); Mean Corpuscular Hgb 30.6 pg (27.0-32.0); Mean Platelet Vol. 8.9 fl (6.2-12.0); Monocyte# 0.52 X10^3/uL; Monocyte% 6.5 % (0-10); NRBC Flagged by Analyzer 0 % (0-5); Neutrophil # 4.86 X10^3/uL (2.7-7.7); Neutrophil % 60.3 % (47-70); Platelet Count 376 K/mm3 (150-450); RBC Distribution Width CV 11.7 % (11.6-14.6); RBC Distribution Width SD 39.2 fl (35.1-43.9); Red Blood Count 4.31 M/mm3 (4.2-5.4); White Blood Count 8.1 K/mm3 (4.4-11.0)
== END ==
PROVIDERS: PCP Internal Medicine; Referring Provider Internal Medicine; Visit Provider Internal Medicine
DX: D72.829 Elevated white blood cell count, unspecified (principal)
CPT/HCPCS: 36415; 85025

== ENCOUNTER → 2021-04-14 03:40 | Outpatient (CLI) | payer OTHER, SELFPAY ==
[2021-04-14 04:23] LABS: Cholesterol 147 mg/dL (200); High Density Lipoprotein 47 mg/dL; Triglycerides 59 mg/dL; Very Low Density Lipoprotein 12 mg/dL (5-40)
== END ==
PROVIDERS: PCP Internal Medicine; Referring Provider Internal Medicine; Visit Provider Internal Medicine
DX: E78.5 Hyperlipidemia, unspecified (principal)
CPT/HCPCS: 36415; 80061

== ENCOUNTER 2021-05-12 09:43 | Outpatient (REF) | payer SELFPAY ==
[2021-05-12 09:44] VITALS: BP 127/83; PULSE 70; RESP 14; TEMP 36; O2SAT 99; BMI 27.6
--- NOTE | 2021-05-12 10:26 | EX.ED.VISEXT ---
HPI History of Present Illness Chief Complaint: Occup Expose Narrative Narrative: 30-year-old female states that she was inadvertently stuck with a needle while drawing blood from a patient in a [facility] today. She states the patient moved his hand and he poked her left index finger. She was told that the patient does not have any communicable diseases. Patient herself has a small needlestick to the left index finger which is not bleeding. She states is not painful. ROS ROS ED Constitutional Constitutional ED: Denies chills, fever(s) or sweats Eyes Eyes: Denies blurry vision or change in vision ENT ENT ED: Denies ear pain or sore throat Cardiovascular Cardiovascular: Denies chest pain, palpitations or racing heartbeat Respiratory/Chest Respiratory/Chest: Denies cough, dyspnea or sputum Gastrointestinal Gastrointestinal: Denies abdominal pain, constipation, diarrhea, nausea or vomiting Genitourinary Genitourinary ED: Denies dysuria, hematuria or urinary frequency Musculoskeletal Musculoskeletal: Reports other Details: Needlestick left index finger ; Denies arthralgias, myalgias or neck pain Integumentary Denies abscess, Abrasions or rash Neurologic Neurologic: Denies headache(s), paresthesias or weakness Psychiatric Psychiatric: Denies anxiety, depression, suicidal ideation or suicidal thoughts Endocrine Endocrinology: Denies polydipsia or polyuria [facility] Medical History Asthma Chronic neck and back pain Kelsy's disease Kelsy's disease History of tetanus, diphtheria, and acellular pertussis booster vaccination (Tdap) Hyperlipidemia Hypothyroidism Leukocytosis Limb weakness Polycystic ovary disease Prediabetes Seasonal allergies Severe headache Shortness of breath Home Medications cranberry 400 mg capsule 400 mg PO DAILY 06/27/19 [History Last Taken 12/28/20] multivitamin no.47-iron fum 27 mg-folate no.1 1 mg-dha 300 mg capsule cap PO 05/26/20 [History Last Taken 12/28/20] levonorgestrel 20 mcg/24 hours (7 yrs) 52 mg intrauterine device 1 insert INTRAUTERINE ONCE #1 ea 02/11/21 [Clinic Last Taken Unknown] multivitamin 1 tab PO DAILY 02/25/21 [History Last Taken Unknown] citalopram 40 mg tablet 40 mg PO DAILY #90 tablet 03/25/21 [Rx Last Taken Unknown] levothyroxine 112 mcg tablet 112 mcg PO DAILY #90 tab 04/12/21 [Rx Last Taken Unknown] Allergy/AdvReac Type Severity Reaction Status Date / Time amoxicillin Allergy Unknown rash Verified 05/12/21 09:44 Penicillins Allergy Unknown rash Verified 05/12/21 09:44 adhesive tape AdvReac Unknown pulls skin Verified 05/12/21 09:44 off Family History Grandfather Heart disease Cancer melanoma Mother Breast cancer with mets Grandmother Heart disease Arthritis Dementia Sister Seizures Other CHF (congestive heart failure) Depression Surgical History History of repair of ACL Social History adopted: No household members: spouse current occupational status: employed current occupation: [employer] lab Smoking Status: Never smoker second hand exposure: No alcohol intake: current alcohol intake frequency: a few times a month details: not while substance use type: does not use what type of physical activity do you participate in: none seatbelt use: always do you feel safe at home: Yes additional social history: José EXAM Physical Exam Const Vital Signs: 05/12/21 09:44 05/12/21 10:20 Temperature 96.8 F L Temperature Source Temporal Pulse Rate 70 Respiratory Rate 14 Respiratory Effort Normal Non-Labored Blood Pressure 127/83 H Blood Pressure Mean 97 Pulse Ox 99 Oxygen Delivery Method Room Air Positive well nourished General Appearance ED: NAD HEENT Reports moist mucous membranes normocephalic and atraumatic Eyes PERRL and EOMs intact bilaterally Neuro oriented x3 and CN's II-XII intact bilaterally Sensorium / Orientation: alert Psych mental status grossly normal and thought process normal Skin Skin Narrative: Punctate wound left index finger MDM MDM MDM Narrative Medical decision making narrative: Patient is seen and evaluated for needlestick. Blood was drawn. Patient did not anything for pain or infection. Patient states that she will go back to the [facility] and draw blood for comparison from the patient. According to protocol for her she does not need to fill out of Worker's Comp. paperwork here. She will follow-up with employee health. Impression: 1. Needlestick injury Lab Data Attestation: I reviewed the patient's lab results. Discharge Plan Triage Chief Complaint: Occup Expose ED Provider: Sunil Marks Dx/Rx/DC Orders Instructions: ED NEEDLE STICK Health Care Worker Prescriptions: No Action cranberry 400 mg capsule 400 mg PO DAILY RF: 0 PNV-DHA 27 mg iron-1 mg -300 mg capsule PO RF: 0 multivitamin [Daily Multi-Vitamin] Tablet 1 tab PO DAILY RF: 0 levonorgestrel 20 mcg/24 hours (6 yrs) 52 mg intrauterine device 1 insert intrauterine ONCE Qty: 1 RF: 0 citalopram 40 mg tablet 40 mg PO DAILY Qty: 90 RF: 3 levothyroxine 112 mcg tablet 112 mcg PO DAILY Qty: 90 RF: 3 Primary Care Provider: Caron Summers Referrals: Caron Summers MD [Primary Care Provider] - Clinic,NOW [NON-STAFF] - 3-5 Days Disposition Disposition: Home, Self Care
--- NOTE | 2021-05-12 10:54 | ED.RN ---
pt educated on d/c instructions and to fill out quantros. per inquires about breast feeding. per chain sales consultant marino, pt is ok to breastfeed, and to call ob with any questions or concerns related to breast feeding. pt denies any further questions.
[2021-05-12 11:59] LABS: HIV - WCH Non-Reactive (Nonreactive); Hepatitis B Surface Antibody Reactive; Hepatitis B Surface Antigen Non-Reactive (Nonreactive); Hepatitis C Antibody Non-Reactive (Nonreactive)
== END 2021-05-12 23:59 | disposition home or self-care (01) ==
LOC: EDREF 09:43
PROVIDERS: PCP Internal Medicine; Visit Provider Student in an Organized Health Care Education/Training Program
DX: L76.11 Accidental puncture and laceration of skin and subcutaneous tissue during a dermatologic procedure (principal); Y92.128 Other place in nursing home as the place of occurrence of the external cause; E78.5 Hyperlipidemia, unspecified; J45.909 Unspecified asthma, uncomplicated; E06.3 Autoimmune thyroiditis; E28.2 Polycystic ovarian syndrome; Z79.899 Other long term (current) drug therapy
CPT/HCPCS: 36415; 86703; 86706; 86803; 87340

== ENCOUNTER 2021-06-15 14:16 | Outpatient (CLI) | payer OTHER, SELFPAY ==
[2021-06-15 15:32] LABS: Absolute Lymphocyte Count 2.62 X10^3/uL (0.83-4.51); Absolute Neutrophil Count 4.2 X10^3/uL (2.0-7.7); Basophil# 0.03 X10^3/uL; Basophil% 0.4 % (0-1); Eosinophils% 1.4 % (0-5); Hematocrit 38.4 % (37-47); Lymphocyte # 2.62 X10^3/ul (0.83-4.51); Lymphocyte % 35.5 % (19-41); Mean Corp Hgb Conc 33.9 g/dL (32-36); Mean Corpuscular Hgb 29.9 pg (27.0-32.0); Mean Corpuscular Volume 88.3 fL (81-99); Mean Platelet Vol. 8.8 fl (6.2-12.0); Monocyte# 0.42 X10^3/uL; Monocyte% 5.7 % (0-10); NRBC Flagged by Analyzer 0 % (0-5); Neutrophil # 4.18 X10^3/uL (2.7-7.7); Neutrophil % 56.7 % (47-70); Platelet Count 338 K/mm3 (150-450); RBC Distribution Width CV 12.3 % (11.6-14.6); RBC Distribution Width SD 39.8 fl (35.1-43.9); Red Blood Count 4.35 M/mm3 (4.2-5.4); White Blood Count 7.4 K/mm3 (4.4-11.0)
[2021-06-15 16:12] LABS: Anion Gap 7 (5-15); BUN 21 mg/dL (7-18); BUN/Creat Ratio 24.2 RATIO (10-20); Chloride 104 mmol/L (98-107); Creatinine, Serum 0.87 mg/dL (0.55-1.02); EST Glomerular Filtration Rate 81 mL/min (>60); Est Glom Filt Rate - Afr Amer 98 mL/min (>60); Glucose 88 mg/dL (74-106); Potassium 3.8 mmol/L (3.5-5.1); Sodium Level 140 mmol/L (136-145); Thyroid Stim Hormone (TSH) 0.72 uIU/mL (0.358-3.74)
== END 2021-06-15 23:59 | disposition home or self-care (01) ==
LOC: BIMLAB 14:17
PROVIDERS: PCP Internal Medicine; Referring Provider Internal Medicine; Visit Provider Internal Medicine
DX: F41.9 Anxiety disorder, unspecified (principal); F32.9 Major depressive disorder, single episode, unspecified
CPT/HCPCS: 36415; 80048; 84443; 85025

== ENCOUNTER → 2021-08-14 | Outpatient (CLI) | payer OTHER, SELFPAY ==
--- NOTE | 2021-08-14 10:25 | RAD_ITS ---
STUDY: X-RAY - LEFT ANKLE REASON FOR EXAM: Female, 31 years old. Left ankle pain after fall TECHNIQUE: 3 view(s) of the ankle. COMPARISON: None. FINDINGS: Normal visualized distal tibia and fibula. Normal medial and lateral malleoli. Normal tibiotalar articulation and ankle mortise. Normal visualized talus and calcaneus. The visualized subtalar, talonavicular, calcaneocuboid and tarsal articulations are normal. There is no demonstrated osseous destructive lesion or acute fracture. There is minor anterior soft tissue swelling at the ankle. RAD/Ankle min 3 Views IMPRESSION: Minor anterior soft tissue swelling. No acute fracture of the left ankle. Electronically Signed: Rl Streeter MD at 10:56 EDT ,
== END | disposition home or self-care (01) ==
LOC: RAD 10:24
PROVIDERS: PCP Internal Medicine; Referring Provider Physician Assistant Surgical; Visit Provider Physician Assistant Surgical
DX: S96.912A Strain of unspecified muscle and tendon at ankle and foot level, left foot, initial encounter (principal)
CPT/HCPCS: 73610

== ENCOUNTER → 2021-08-26 | Outpatient (CLI) | payer OTHER, SELFPAY ==
[2021-08-26 05:45] LABS: T4 Free Direct 1.28 ng/dL (0.76-1.46); Thyroid Stim Hormone (TSH) 0.75 uIU/mL (0.358-3.74)
== END | disposition home or self-care (01) ==
LOC: LAB 04:17
PROVIDERS: PCP Internal Medicine; Referring Provider Internal Medicine Endocrinology, Diabetes & Metabolism; Visit Provider Internal Medicine Endocrinology, Diabetes & Metabolism
DX: E03.8 Other specified hypothyroidism (principal); E06.3 Autoimmune thyroiditis
CPT/HCPCS: 36415; 84439; 84443

== ENCOUNTER → 2022-03-15 | Outpatient (CLI) | payer BC, SELFPAY ==
[2022-03-25 18:31] LABS: HPV APTIMA, High Risk Negative (Negative)
== END | disposition home or self-care (01) ==
LOC: LABSPEC 14:56
PROVIDERS: PCP Internal Medicine; Visit Provider Nurse Practitioner Women's Health
DX: Z12.4 Encounter for screening for malignant neoplasm of cervix (principal)
CPT/HCPCS: 87624; 88175; G0145

== ENCOUNTER → 2022-05-27 | Outpatient (CLI) | payer BC, SELFPAY ==
[2022-05-27 12:06] LABS: Absolute Lymphocyte Count 2.29 X10^3/uL (0.83-4.51); Absolute Neutrophil Count 4.2 X10^3/uL (2.0-7.7); Basophil# 0.03 X10^3/uL; Basophil% 0.4 % (0-1); Eosinophil# 0.14 X10^3/uL; Hematocrit 41.2 % (37-47); Hemoglobin 13.3 g/dL (12.0-15.0); Lymphocyte # 2.29 X10^3/ul (0.83-4.51); Lymphocyte % 32.2 % (19-41); Mean Corp Hgb Conc 32.3 g/dL (32-36); Mean Corpuscular Hgb 29.4 pg (27.0-32.0); Mean Corpuscular Volume 90.9 fL (81-99); Monocyte# 0.41 X10^3/uL; Monocyte% 5.8 % (0-10); NRBC Flagged by Analyzer 0 % (0-5); Neutrophil # 4.22 X10^3/uL (2.7-7.7); Neutrophil % 59.3 % (47-70); Platelet Count 358 K/mm3 (150-450); RBC Distribution Width CV 12.1 % (11.6-14.6); RBC Distribution Width SD 40.3 fl (35.1-43.9); Red Blood Count 4.53 M/mm3 (4.2-5.4); White Blood Count 7.1 K/mm3 (4.4-11.0)
[2022-05-27 12:38] LABS: ALB/GLOB Ratio 1.1 RATIO (0.9-2.4); AST(SGOT) 13 U/L (15-37); Alanine Aminotransfer ALT/SGPT 16 U/L (13-56); Albumin, Serum 3.5 g/dL (3.2-5.0); Alkaline Phosphatase 73 U/L (45-117); Anion Gap 7 (5-15); BUN 14 mg/dL (7-18); BUN/Creat Ratio 15.4 RATIO (10-20); Calcium,Total 8.5 mg/dL (8.5-10.1); Chloride 106 mmol/L (98-107); Cholesterol 181 mg/dL (200); Creatinine, Serum 0.91 mg/dL (0.55-1.02); EST Glomerular Filtration Rate 76 mL/min (>60); Est Glom Filt Rate - Afr Amer 92 mL/min (>60); Globulin 3.3 g/dL (2.2-4.2); Glucose 88 mg/dL (74-106); High Density Lipoprotein 53 mg/dL; Potassium 3.7 mmol/L (3.5-5.1); Protein, Total 6.8 g/dL (6.4-8.2); Sodium Level 141 mmol/L (136-145); Thyroid Stim Hormone (TSH) 0.46 uIU/mL (0.358-3.74); Triglycerides 98 mg/dL; Very Low Density Lipoprotein 20 mg/dL (5-40)
== END | disposition home or self-care (01) ==
LOC: BIMLAB 09:27
PROVIDERS: PCP Internal Medicine; Referring Provider Internal Medicine; Visit Provider Internal Medicine
DX: E78.5 Hyperlipidemia, unspecified (principal); E03.9 Hypothyroidism, unspecified; E06.3 Autoimmune thyroiditis
CPT/HCPCS: 36415; 80053; 80061; 84443; 85025

== ENCOUNTER 2022-07-26 08:00 | Outpatient (RCR) | payer BC, SELFPAY ==
--- NOTE | 2022-06-07 08:59 | HP.PTEVAL_ITS ---
Patient's Visit Information JASON JONES is a 31 year old F referred to Physical Therapy by Dr. Caron Summers MD with a diagnosis of R shoulder pain. Date of Evaluation: 06/07/22 Physical Therapist: Panchito Barrett DPT - Visit Plan Frequency: 1x/Week Duration: 6 Weeks Plan: Start with RTC (supraspinatus) strengthening with low load initially progressing load as tolerated. Add in scapular and periscapular strengthening as tolerated. - Subjective Pt. is here today for her initial evaluation with diagnosis of R shoulder pain. Pt. reports sleeping on it wrong in November and his been painful since. Pt. reports overall not having a pattern of increased symptoms. Pt. reports lifting her arm causes soreness, reaching over head and behind her back. Pt. is having trouble sleeping in her R side as well. She does have a young child ~17 months old. 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 Pt. is hopeful to reduce symptoms in order to get back to all work and recreational activities without limitations. - Pain R shoulder Pain Intensity (Out of 10): 0 Pain Intensity Range: 0, 4 - Objective POSTURE: Pt. had pretty good cervical spine and shoulder posture. PALPATION: Pt. has tenderness at anterior shoulder near supraspinatus insertion, biceps bifercation. NEURO: Normal sensation and normal DTR of BUEs. ROM: PT. has full motion of B shoulders, but does have increased pain at end range flexion, abd, IR and ER motions. MMT: L shoulder 5/5 throughout without increase in symptoms. R shoulder: flexion 5-/5 increase NW, abd 5-/5 increase NW, ER 5-/5 increase NW, IR 5/5 NE, ext 5/5 NE. - Special Tests R Shoulder External Rotation Lag Test - RC Tear: Negative R Shoulder Lift Off Test - Subscapular Tear: Negative R Shoulder Drop Sign - IS Test: Negative R Shoulder Empty Can - SS: Positive R Shoulder Neer - Impingement: Negative R Shoulder [place] - Impingement: Negative R Shoulder Speeds Test - Labrum/Biceps: Negative - Balance/Special Test Scores Quick DASH Score: 22.7250 - Goals Goal 1:: LTG: Pt. to be I with HEP. Goal Time Frame: 4-6 Weeks Goal 2:: STG: Pt. to have full motion of R shoulder without increase in symptoms. Goal Time Frame: 2 Weeks Goal 3:: LTG: Pt. to be able to sleep on her R side without increase in symptoms. Goal Time Frame: 4-6 Weeks Goal 4:: LTG: Pt. to have full strength of R shoulder without increase in symptoms. Goal Time Frame: 4-6 Weeks Goal 5:: LTG: pt. to complete all work and recreational activities without increase in symptoms. Goal Time Frame: 4-6 Weeks - Rehabilitation Potential Physical Therapy Diagnosis: Pt. has signs and symptoms consistent with R shoulder pain. From the testing today, she presents with R supraspinatus tendin itis. Pt. did not present with tear like pathology. I would like her to work in PT with slowly increasing the load applied to her RTC in order to remodel her tissue. Rehabilitation Potential: Excellent - Anticipated Interventions Patient/Client Instruction: Educate patient on: Condition, Plan of Care, Risk Factors, Benefits of Fitness Program For the Purpose of:: To facilitate caregiver knowledge, To improve self management, To prevent re-injury, To improve ability to perform tasks related to life management, To improve tolerance to ADL's Therapeutic Exercise to Include: Strength training, Power training, Postural training, Flexibilty training, Passive ROM, Active ROM, Scapular Strength/Stabilization For the Purpose of:: To decrease pain, To increase ROM, To improve nutrient delivery to tissue, To increase oxygenation perfusion, To improve gait and locomotor functions, To improve health of tissue, To decrease soft tissue restriction, To increase flexibility/ROM Ultrasound (thermal/non thermal): Yes Thank you for the opportunity to evaluate your patient. For Medicare and Medicare HMO plans, please review the plan of care and approve it. It will need to be FAXED BACK to us at [phone] for Medicare purposes. For Medicare only, by signing this I certify the plan of care. Please let me know if there are questions or concerns regarding this plan of care. Physician Signature: Date:
--- NOTE | 2022-07-26 08:34 | HP.PTDCSUM ---
It has been my pleasure to treat JASON JONES referred by Dr. Caron Summers MD, with the diagnosis of R shoulder pain for a total of 2 visit(s). Discharge Date: 07/26/22 Please see the following information for a summary of their discharge status. Subjective: Pt. reports overall doing well. She does noticing some clicking with ER motions. No issues with sleeping R shoulder Pain Intensity (Out of 10): 0 % Improvement: 100 Objective/Function: Pt. is doing much better. Pt. reports no pain currently. She had good strength and ROM throughout her R shoulder. No issues with sleeping. She does has slight hypermobility especially with ER motions. I talked to her about continuing to strengthening and work on stability exercises ie planks. Pt. consents. Pt. is doing well. I gave her an exercise program both for RTC and scapular strengthening. Goal 1:: LTG: Pt. to be I with HEP. Goal Progress: Goal Met Goal 2:: STG: Pt. to have full motion of R shoulder without increase in symptoms. Goal 3:: LTG: Pt. to be able to sleep on her R side without increase in symptoms. Goal Progress: Goal Met Goal 4:: LTG: Pt. to have full strength of R shoulder without increase in symptoms. Goal Progress: Goal Met Goal 5:: LTG: pt. to complete all work and recreational activities without increase in symptoms. Goal Progress: Goal Met Plan: Pt. to be DC to HEP at this point in time. Pt. to continue to work on RTC and scapular strengthening at home. Discharge Comments: Pt. is doing much better. She reports overall not much pain in her shoulder at all, but does have some click with end range ER. Pt. has full ROM and strength. I would like her to continue with RTC and scapular strengthening. I believe the clicking will stop with increased stability. She has increased hypermobility and I believe as this stabilizes the clicking will go away. Pt. will be DC to HEP at this point in time. If there are questions or concerns regarding this patient's physical therapy, please feel free to call me at [phone]. Thank you for the referral of this patient. Sincerely, Panchito Wakefieldos, DPT Balance/Gait/Functional tests - Balance/Special Test Scores Quick DASH Score: 0
== END 2022-07-26 09:06 | disposition home or self-care (01) ==
LOC: PT 08:00
PROVIDERS: PCP Internal Medicine; Referring Provider Internal Medicine; Visit Provider Internal Medicine
DX: M25.511 Pain in right shoulder (principal)
CPT/HCPCS: 97110; 97161

== ENCOUNTER → 2022-11-22 | Outpatient (CLI) | payer BC, SELFPAY ==
--- NOTE | 2022-11-22 15:37 | RAD_ITS ---
EXAM: XR RIGHT KNEE, 3 VIEWS CLINICAL INDICATION: pain TECHNIQUE: Three views of the right knee. COMPARISON: No relevant prior studies available. FINDINGS: BONES/JOINTS: There is evidence of prior ACL repair. No acute fracture. No subluxation. Normal alignment. Preservation of the joint space. No sclerotic or destructive changes observed. SOFT TISSUES: Unremarkable. No soft tissue swelling or gas. No radiopaque foreign body. RAD/Knee 3 Views IMPRESSION: No acute findings in the right knee. Electronically Signed: Vidal Hoover MD at 16:43 EDT ,
--- NOTE | 2022-11-22 15:40 | RAD_ITS ---
EXAM: XR LEFT KNEE, 3 VIEWS CLINICAL INDICATION: pain TECHNIQUE: Three views of the left knee. COMPARISON: No relevant prior studies available. FINDINGS: BONES/JOINTS: Unremarkable. No acute fracture. No subluxation. Normal alignment. Preservation of the joint space. No sclerotic or destructive changes observed. SOFT TISSUES: Unremarkable. No soft tissue swelling or gas. No radiopaque foreign body. RAD/Knee 3 Views IMPRESSION: Negative left knee x-rays. Electronically Signed: Vidal Hoover MD at 16:42 EDT ,
== END | disposition home or self-care (01) ==
LOC: MTRAD 15:37
PROVIDERS: PCP Internal Medicine; Referring Provider Physician Assistant; Visit Provider Physician Assistant
DX: M25.562 Pain in left knee (principal); M25.561 Pain in right knee
CPT/HCPCS: 73562

== ENCOUNTER → 2023-04-12 | Outpatient (CLI) | payer BC, SELFPAY ==
[2023-04-12 09:40] LABS: T4 Free Direct 1.28 ng/dL (0.76-1.46); Thyroid Stim Hormone (TSH) 1.47 uIU/mL (0.358-3.74)
== END | disposition home or self-care (01) ==
LOC: LAB 08:23
PROVIDERS: PCP Internal Medicine; Referring Provider Internal Medicine Endocrinology, Diabetes & Metabolism; Visit Provider Internal Medicine Endocrinology, Diabetes & Metabolism
DX: E03.9 Hypothyroidism, unspecified (principal)
CPT/HCPCS: 36415; 84439; 84443

== ENCOUNTER → 2023-05-05 | Outpatient (CLI) | payer BC, SELFPAY ==
--- OUTSIDE RECORDS SUMMARY | 2023-05-05 15:24 | XMS RPT_ITS | CCD ---
Author Name Unknown Address [address] [place] [address] Organization [facility] Results Test Name Value Interpretation Reference Range Facil ity Summary Purpose Family History No Family History Records FoundNo Family History Records Found Advance Directives No Advanced Directives Records FoundNo Advanced Directives Records Found Additional Source Comments INFORMATION SOURCE (unrecogn ized section and content) DATE CREATED AUTHOR AUTHOR'S MARTÍNEZ RUIZ 07/12/2019 [facility] ([place]) FOR RECORDS PERTAINING TO PATIENTS WHO ARE OR HAVE BEEN ENROLLED IN A CHEMICAL DEPENDENCY/SUBSTANCEABUSE PROGRAM, SOME INFORMATION MAY BE OMITTED. This clinical summary was aggregated from multiple sources. Caution should be exercised in using it in the provision of clinical care. This summary normalizes information from multiple sources, and as a consequence, information in this document may materially change the coding, format and clinical context of patient data. In addition, data may be omitted in some cases. CLINICAL DECISIONS SHOULD BE BASED ON THE PRIMARY CLINICAL RECORDS. [facility]. provides no warranty or guarantee of the accuracy or completeness of information in this document.
[2023-05-08 20:08] LABS: Chlamydia By Nucleic Acid AMP Negative (Negative); Gonococcus By Nucleic Acid AMP Negative (Negative)
== END | disposition home or self-care (01) ==
LOC: LABSPEC 14:13
PROVIDERS: PCP Internal Medicine; Referring Provider Advanced Practice Midwife; Visit Provider Advanced Practice Midwife
DX: Z34.90 Encounter for supervision of normal pregnancy, unspecified, unspecified trimester (principal); Z82.0 Family history of epilepsy and other diseases of the nervous system; Z3A.00 Weeks of gestation of pregnancy not specified
CPT/HCPCS: 87086; 87491; 87591

== ENCOUNTER 2023-05-23 13:23 | Outpatient (CLI) | payer BC, SELFPAY ==
--- OUTSIDE RECORDS SUMMARY | 2023-05-23 13:47 | XMS RPT_ITS | CCD ---
Author Name Unknown Address [address] [place] [address] Organization [facility] Results Test Name Value Interpretation Reference Range Facil ity Summary Purpose Family History No Family History Records FoundNo Family History Records Found Advance Directives No Advanced Directives Records FoundNo Advanced Directives Records Found Additional Source Comments INFORMATION SOURCE (unrecogn ized section and content) DATE CREATED AUTHOR AUTHOR'S MARTÍNEZ RUIZ 07/12/2019 [facility] ([place]) FOR RECORDS PERTAINING TO PATIENTS WHO ARE [...] BE BASED ON THE PRIMARY CLINICAL RECORDS. [facility] [employer] [facility]. provides no warranty or guarantee of the accuracy or completeness of information in this document.
[2023-05-23 14:24] LABS: Absolute Lymphocyte Count 2.29 X10^3/uL (0.83-4.51); Absolute Neutrophil Count 7.6 X10^3/uL (2.0-7.7); Basophil# 0.02 X10^3/uL; Basophil% 0.2 % (0-1); Hematocrit 37.4 % (37-47); Hemoglobin 12.4 g/dL (12.0-15.0); Lymphocyte # 2.29 X10^3/ul (0.83-4.51); Lymphocyte % 21.8 % (19-41); Mean Corp Hgb Conc 33.2 g/dL (32-36); Mean Corpuscular Hgb 29.3 pg (27.0-32.0); Mean Corpuscular Volume 88.4 fL (81-99); Mean Platelet Vol. 9.5 fl (6.2-12.0); Monocyte# 0.43 X10^3/uL; Monocyte% 4.1 % (0-10); NRBC Flagged by Analyzer 0 % (0-5); Neutrophil # 7.63 X10^3/uL (2.7-7.7); Neutrophil % 72.6 % (47-70); Platelet Count 355 K/mm3 (150-450); RBC Distribution Width CV 12.4 % (11.6-14.6); RBC Distribution Width SD 40.2 fl (35.1-43.9); Red Blood Count 4.23 M/mm3 (4.2-5.4); White Blood Count 10.5 K/mm3 (4.4-11.0)
[2023-05-23 14:31] LABS: NATERA MAILED SPECIMEN
[2023-05-23 14:57] LABS: Free T3 2.3 pg/mL (2.18-3.98); T4 Free Direct 1.18 ng/dL (0.76-1.46); Thyroid Stim Hormone (TSH) 1.11 uIU/mL (0.358-3.74)
[2023-05-23 15:35] LABS: HIV - WCH Non-Reactive (Nonreactive); Hepatitis B Surface Antigen Non-Reactive (Nonreactive); Hepatitis C Antibody Non-Reactive (Nonreactive); Rubella IgG Reactive (Nonreactive); Syphilis Antibodies Non-reactive
== END 2023-05-23 23:59 | disposition home or self-care (01) ==
LOC: LAB 13:25
PROVIDERS: PCP Internal Medicine; Referring Provider Advanced Practice Midwife; Visit Provider Advanced Practice Midwife
DX: O99.281 Endocrine, nutritional and metabolic diseases complicating pregnancy, first trimester (principal); Z3A.00 Weeks of gestation of pregnancy not specified; Z82.0 Family history of epilepsy and other diseases of the nervous system; E03.9 Hypothyroidism, unspecified
CPT/HCPCS: 36415; 84439; 84443; 84481; 85025; 86703; 86762; 86780; 86803; 86850; 86900; 86901; 87340

== ENCOUNTER → 2023-06-23 | Outpatient (CLI) | payer BC, SELFPAY ==
[2023-06-23 12:40] LABS: AST(SGOT) 13 U/L (15-37); Alanine Aminotransfer ALT/SGPT 16 U/L (13-56); Albumin, Serum 3.1 g/dL (3.2-5.0); Alkaline Phosphatase 60 U/L (45-117); Anion Gap 7 (5-15); BUN 8 mg/dL (7-18); BUN/Creat Ratio 11.2 RATIO (10-20); Calcium,Total 9.2 mg/dL (8.5-10.1); Chloride 109 mmol/L (98-107); Cholesterol 280 mg/dL (200); Creatinine, Serum 0.72 mg/dL (0.55-1.02); EST Glomerular Filtration Rate 100 mL/min (>60); Est Glom Filt Rate - Afr Amer 121 mL/min (>60); Globulin 3.1 g/dL (2.2-4.2); Glucose 82 mg/dL (74-106); High Density Lipoprotein 69 mg/dL; Potassium 3.9 mmol/L (3.5-5.1); Protein, Total 6.2 g/dL (6.4-8.2); Sodium Level 140 mmol/L (136-145); Triglycerides 178 mg/dL; Very Low Density Lipoprotein 36 mg/dL (5-40)
== END | disposition home or self-care (01) ==
LOC: BIMLAB 08:22
PROVIDERS: PCP Internal Medicine; Visit Provider Internal Medicine
DX: Z00.00 Encounter for general adult medical examination without abnormal findings (principal)
CPT/HCPCS: 36415; 80053; 80061

== ENCOUNTER → 2023-07-28 | Outpatient (CLI) | payer BC, SELFPAY ==
--- NOTE | 2023-07-28 09:27 | US_ITS ---
STUDY: SECOND AND THIRD TRIMESTER OBSTETRICAL ULTRASOUND REASON FOR EXAM: Female, 33 years old anatomy LMP: March 07, 2023. TECHNIQUE: Transabdominal and Transvaginal TECHNICAL QUALITY: Adequate. PRIOR ULTRASOUND: None. FINDINGS: There is a single intrauterine fetus. The fetus is in a cephalic presentation. There is demonstrated cardiac activity with a heart rate of 157 bpm. There is a normal amniotic fluid volume. The largest amniotic fluid pocket measures 4 cm. The amniotic fluid index (SURENRDA) is within normal limits. The placenta is anterior in location and is not low lying. There are Grade 1 placental changes. The cervix measures 5 cm in length. The adnexal regions are not visualized. BIOMETRY: BPD: 4.91 cm: 20 weeks, 6 days HC: 18.38 cm: 20 weeks, 5 days AC: 16.11 cm: 21 weeks, 1 days FL: 3.38 cm: 20 weeks, 4 days CI: 80% FL/BPD: 69% FL/HC: FL/AC: 21% HC/AC: 1.14 age by current US: 20 weeks, 4 days. JANET by current US: December 11, 2023. Estimated weight: 388 grams, +/- 58 grams, 72 %. Age by LMP: 20 weeks, 3 days. JANET by LMP: December 12, 2023. ANATOMY: Gender: Male Cranium: Normal lateral ventricles. Normal choroid plexus. Normal cerebellum. Normal cisterna magna. Normal face, nose and lips. Chest: Normal 4-chamber heart. Abdomen/Pelvis: Normal diaphragm. Normal stomach. Normal abdominal wall. Normal cord insertion. Normal 3 vessel cord. Normal kidneys. Normal bladder. Spine: Normal cervical spine. Normal thoracic spine. Normal lumbar spine. Normal sacrum. Extremities: Normal bilateral upper extremities. Normal bilateral lower extremities. US/OB Anatomy w/ Transvaginal IMPRESSION: Single live intrauterine gestation with a mean gestational age of 20 weeks and 4 days. Electronically Signed: Carter Burroughs MD at 14:17 EDT ,
== END | disposition home or self-care (01) ==
LOC: US 09:26
PROVIDERS: PCP Internal Medicine; Referring Provider Obstetrics & Gynecology; Visit Provider Obstetrics & Gynecology
DX: O09.90 Supervision of high risk pregnancy, unspecified, unspecified trimester (principal); Z3A.00 Weeks of gestation of pregnancy not specified
CPT/HCPCS: 76805; 76817

== ENCOUNTER → 2023-09-22 | Outpatient (CLI) | payer BC, SELFPAY ==
[2023-09-22 10:38] LABS: Absolute Lymphocyte Count 2.21 X10^3/uL (0.83-4.51); Absolute Neutrophil Count 8.2 X10^3/uL (2.0-7.7); Basophil# 0.03 X10^3/uL; Basophil% 0.3 % (0-1); Eosinophil# 0.11 X10^3/uL; Hematocrit 35.6 % (37-47); Hemoglobin 11.9 g/dL (12.0-15.0); Lymphocyte # 2.21 X10^3/ul (0.83-4.51); Lymphocyte % 19.8 % (19-41); Mean Corp Hgb Conc 33.4 g/dL (32-36); Mean Corpuscular Hgb 30.3 pg (27.0-32.0); Mean Corpuscular Volume 90.6 fL (81-99); Mean Platelet Vol. 9.4 fl (6.2-12.0); Monocyte# 0.51 X10^3/uL; Monocyte% 4.6 % (0-10); NRBC Flagged by Analyzer 0 % (0-5); Neutrophil # 8.22 X10^3/uL (2.7-7.7); Neutrophil % 73.6 % (47-70); Platelet Count 315 K/mm3 (150-450); RBC Distribution Width CV 12.9 % (11.6-14.6); RBC Distribution Width SD 42.8 fl (35.1-43.9); Red Blood Count 3.93 M/mm3 (4.2-5.4); White Blood Count 11.2 K/mm3 (4.4-11.0)
[2023-09-22 11:12] LABS: Glucose Challenge Gest 1H 50g 138 mg/dL (70-140)
[2023-09-22 11:23] LABS: T4 Free Direct 0.99 ng/dL (0.76-1.46); Thyroid Stim Hormone (TSH) 0.96 uIU/mL (0.358-3.74)
[2023-09-22 12:18] LABS: HIV - WCH Non-Reactive (Nonreactive); Syphilis Antibodies Non-reactive
== END | disposition home or self-care (01) ==
LOC: LAB 09:21
PROVIDERS: Nurse Practitioner Family; PCP Internal Medicine; Referring Provider Obstetrics & Gynecology; Visit Provider Obstetrics & Gynecology
DX: O99.280 Endocrine, nutritional and metabolic diseases complicating pregnancy, unspecified trimester (principal); Z3A.00 Weeks of gestation of pregnancy not specified; E03.9 Hypothyroidism, unspecified; Z13.1 Encounter for screening for diabetes mellitus
CPT/HCPCS: 36415; 82950; 84439; 84443; 85025; 86703; 86780

== ENCOUNTER → 2023-10-10 | Outpatient (CLI) | payer BC, SELFPAY ==
[2023-10-10 08:00] LABS: Glucose GTT-Gestation. Fasting 77 mg/dL (<105)
[2023-10-10 08:41] LABS: Glucose GTT-Gestational 1 Hr 143 mg/dL (<190)
[2023-10-10 09:52] LABS: Glucose GTT-Gestational 2 Hr 153 mg/dL (<165)
[2023-10-10 11:16] LABS: Glucose GTT-Gestational 3 Hr 51 L (<145)
== END | disposition home or self-care (01) ==
LOC: LAB 08:46
PROVIDERS: PCP Internal Medicine; Referring Provider Obstetrics & Gynecology; Visit Provider Obstetrics & Gynecology
DX: Z13.1 Encounter for screening for diabetes mellitus (principal)
CPT/HCPCS: 36415; 82951; 82952

== ENCOUNTER → 2023-11-14 | Outpatient (CLI) | payer BC, SELFPAY | END | disposition home or self-care (01) | PROVIDERS: PCP Internal Medicine; Referring Provider Obstetrics & Gynecology; Visit Provider Obstetrics & Gynecology | DX: O09.93 Supervision of high risk pregnancy, unspecified, third trimester (principal); Z3A.00 Weeks of gestation of pregnancy not specified | CPT/HCPCS: 87077; 87081; 87186 ==

== ENCOUNTER 2023-11-26 18:44 | Inpatient (IN) | payer BC, SELFPAY ==
[2023-11-26] VITALS (31 sets, daily range): BP systolic 115–151; BP diastolic 62–88; PULSE 70–96; RESP 16; TEMP 36.3–36.7; O2SAT 97–99; BMI 33.7
[2023-11-26 17:11] LABS: Hematocrit 35.9 % (37-47); Hemoglobin 12.1 g/dL (12.0-15.0); Mean Corp Hgb Conc 33.7 g/dL (32-36); Mean Corpuscular Hgb 30.5 pg (27.0-32.0); Mean Corpuscular Volume 90.4 fL (81-99); Mean Platelet Vol. 10.6 fl (6.2-12.0); Platelet Count 282 K/mm3 (150-450); RBC Distribution Width CV 13.2 % (11.6-14.6); RBC Distribution Width SD 43.4 fl (35.1-43.9); Red Blood Count 3.97 M/mm3 (4.2-5.4); White Blood Count 12.6 K/mm3 (4.4-11.0)
[2023-11-26 17:21] LABS: Protein, Urine (Random) 18.5 mg/dL (<11.9); Protein:Creat Ratio 145 mg/g CRE (0-200)
[2023-11-26 17:30] LABS: AST(SGOT) 20 U/L (15-37); Alanine Aminotransfer ALT/SGPT 16 U/L (13-56); Creatinine, Serum 0.82 mg/dL (0.55-1.02); EST Glomerular Filtration Rate 86 mL/min (>60); Est Glom Filt Rate - Afr Amer 103 mL/min (>60); Uric Acid 3.9 mg/dL (2.6-6.0)
[2023-11-26] MEDS: Acetaminophen 500 MG Tablet 1000 MG PO (17:45)
[2023-11-26] MEDS: Cefazolin 2 GM in 0.9% Normal Saline (100mL Bag) 100 ML IV (19:31)
[2023-11-26] MEDS: Lactated Ringers 1,000 ML 50 ML IV (19:33)
[2023-11-26 19:55] LABS: Syphilis Antibodies Non-reactive
[2023-11-26] MEDS: Oxytocin 15 Units/NS 250ml 15 UNITS/250 ML IV.SOLN 2 UNITS IV (20:18)
[2023-11-27] VITALS (47 sets, daily range): BP systolic 108–156; BP diastolic 53–87; PULSE 58–111; RESP 16–18; TEMP 36.2–36.8; O2SAT 80–100
[2023-11-27] MEDS: Acetaminophen 500 MG Tablet PO ×2 (01:13→11:44)
[2023-11-27] MEDS: Lactated Ringers 1,000 ML 999 ML IV (02:15)
[2023-11-27] MEDS: fentaNYL-bupivacaine (epidural) 100 ML BAG EPIDURAL ×2 (03:14→07:34)
[2023-11-27] MEDS: Cefazolin 1 GM/50 ML BAG IV (03:43)
--- NOTE | 2023-11-27 05:16 | HP.PCM.OB_ITS ---
HPI - General General Date of Admission: 11/26/23 Date of Service: 11/27/23 HPI Narrative JASON JONES, is a 33 F 37.6 weeks gestation who presents to unit with persistent headaches, swelling and decreased movement Maternal Data Information JANET Calculator Estimated Delivery Date Method Current WG Current Estimate 12/12/23 LMP (Certain) 37w 6d Final JANET: 12/12/23 Final JANET Source: US >20 weeks Gestational age: 37.6 PFSH PFSH Medical History (Updated 11/27/23 @ 05:19 by Bekah Knowles CNM) Asthma Thyroid disorder Depression Anxiety Anxiety Pre-eclampsia Preventative health care Bilateral lower extremity pain Bilateral knee pain Right shoulder pain Numbness and tingling of both upper extremities Skin mole Hyperlipidemia Leukocytosis Spontaneous vaginal delivery Kelsy's disease Kelsy's disease History of tetanus, diphtheria, and acellular pertussis booster vaccination (Tdap) Prediabetes Hypothyroidism Polycystic ovary disease Seasonal allergies Chronic neck and back pain Limb weakness Asthma Severe headache Shortness of breath Home Medications ?Medication ?Instructions ?Recorded ?Last Taken ?Type cranberry 400 mg capsule 400 mg PO DAILY 06/27/19 12/28/20 History citalopram 20 mg tablet 20 mg PO DAILY #90 tabs 12/16/22 Unknown Rx mv-mn no.97-folic 180 mcg-dha 25 1 tab PO 12/16/22 Unknown History mg-herb no.293 25 mg chewable tablet (Alive Daily Support ) levothyroxine 112 mcg tablet 112 mcg PO DAILY #90 tabs 03/03/23 Unknown Rx prochlorperazine maleate 10 mg 10 mg PO Q8H PRN nausea and 04/21/23 Unknown Rx tablet (Compazine) vomiting #90 tabs buspirone 5 mg tablet 5 mg PO BID #180 tabs 06/23/23 Unknown Rx doxylamine succinate 25 mg tablet 25 mg PO QHS PRN insomnia 06/30/23 Unknown History (Unisom (doxylamine)) Allergy/AdvReac Type Severity Reaction Status Date / Time amoxicillin Allergy Unknown rash Verified 11/26/23 17:05 Penicillins Allergy Unknown rash Verified 11/26/23 17:05 adhesive tape AdvReac Unknown pulls skin Verified 11/26/23 17:05 off Family History Grandfather Heart disease Cancer melanoma Mother Breast cancer with mets; dx age 52, dec age 59 Grandmother Heart disease Arthritis Dementia Sister Seizures Other CHF (congestive heart failure) Depression Surgical History [place] teeth extracted History of repair of ACL Social History adopted: No household members: spouse and children number of children: 1 current occupational status: employed current occupation: [employer] lab current occupational exposures/hazards: No pets and animals: No history of recent travel: No sexually active: Yes Smoking Status: Former smoker Tobacco: How many years used: 1 second hand exposure: No alcohol intake: current alcohol intake frequency: a few times a month details: not while substance use type: does not use well-balanced diet: daily or most days caffeine: No eating out: rarely or never during the past year weight has: increased > 10 lbs what type of physical activity do you participate in: none miguel angel/christianity: [employer] seatbelt use: always do you feel safe at home: Yes additional social history: José History 2 Elective abortions Hx Para 1 Spontaneous abortions Hx # Term Pregnancies Ectopic pregnancies Hx # Pregnancies Multiple births # of living children 1 Past Pregnancies Del. Date Name GA/Weeks Outcome Route Bth Weight Gen Labor Lgth Anesthesia [facility] Provider FOB 12/29/20 Ana 38 live - full term 7lbs Female epidu ral [employer] Meghan Delivery Date: 12/29/20 Last Updated by: Katie Kim cervical change to complete dilation without augmentation; 1st degree laceration Visit Details Expected Delivery Route/Plan Labor Preferences- CB/BF classes: no labor support person: José labor intervention preferences: pain management options preferred: epidural cut cord/dad catch: cord : yes PP control planned: discussed discussed possible routes of delivery and associated risks: [] special requests: [] Plans Covid status: [] Flu vaccine:given Tdap vaccine: given 09/26/23 Rhogam: NA LARC form signed: yes Problem list reviewed and updated with the most current plan of care details and appropriate orders placed. Relevant counseling for the gestational age provided. Continue routine care and follow up unless otherwise noted in visit notes/problem list details OB Flowsheet Initial Weight: Not Recorded Date -?-?-?-?-?-?-?-?-?-?-?-?- EGA Weight BP Urine Prot -?-?-?-?-?-?-?-?-?-?-?-?- Glucose FHR FuHt Pres Dilation -?-?-?-?-?-?-?-?-?-?-?-?- Effaced St Visit Note 05/05/23 -?-?-?-?-?-?-?-?-?-?-?-?- 8w 3d 189 lb 2 oz 135/83 -?-?-?-?-?-?-?-?-?-?-?-?- 168 -?-?-?-?-?-?-?-?-?-?-?-?- kw- no vb/crampi ng. CRL cons with dates. wants NIPT 06/02/23 -?-?-?-?-?-?-?-?-?-?-?-?- 12w 3d 186 lb 6 oz 113/73 -?-?-?-?-?-?-?-?-?-?-?-?- 157 -?-?-?-?-?-?-?-?-?-?-?-?- JV-still nauseat ed by not throwing up. no cramping or spotting. Low risk NIPT, it's a boy. 06/30/23 -?-?-?-?-?-?-?-?-?-?-?-?- 16w 3d 189 lb 124/69 Negative -?-?-?-?-?-?-?-?-?-?-?-?- Negative 150 -?-?-?-?-?-?-?-?-?-?-?-?- SM- no vb crampi ng 07/28/23 -?-?-?-?-?-?-?-?-?-?-?-?- 20w 3d 192 lb 128/80 Negative -?-?-?-?-?-?-?-?-?-?--?-?- Negative 150 -?-?-?-?-?-?-?-?-?-?-?-?- Sm- tsh free t4 today no vb cramping 08/25/23 -?-?-?-?-?-?-?-?-?-?-?-?- 24w 3d 195 lb 2 oz 124/78 Nega tive -?-?-?-?-?-?-?-?-?-?-?-?- Negative 140 -?-?-?-?-?-?-?-?-?-?-?-?- JV- no lof, vagi nal bleeding, or dec fm. needs a 1 hr and thyroid. 09/26/23 -?-?-?-?-?-?-?-?-?-?-?-?- 29w 0d 197 lb 118/82 Negative -?-?-?-?-?-?-?-?-?-?-?-?- Negative 142 29 -?-?-?-?-?-?-?-?-?-?-?-?- MH-No VB, LOF. G ood FM. 3 hr GTT scheduled. Larc and tdap. 10/12/23 -?-?-?-?-?-?-?-?-?-?-?-?- 31w 2d 198 lb 6 oz 111/75 Nega tive -?-?-?-?-?-?-?-?-?-?-?-?- Negative 150 33 -?-?-?-?-?-?-?-?-?-?-?-?- JV- passed her 3 hr. no complaints other than indigestion. + fm. 10/30/23 -?-?-?-?-?-?-?-?-?-?-?-?- 33w 6d 203 lb 4 oz 133/79 Nega tive -?-?-?-?-?-?-?-?-?-?-?-?- Negative 140 36 -?-?-?-?-?-?-?-?-?-?-?-?- KW- no vb/lof/ct x. good fm. Pepcid is helping indigestion. KW- no vb/lof/ctx. good fm. Pepcid is helping indigestion. consider growth US pending fundal height 11/14/23 -?-?-?-?-?-?-?-?-?-?-?-?- 36w 0d 205 lb 112/77 Negative -?-?-?-?-?-?-?-?-?-?-?-?- Negative 130 37 Cephalic 1 .5 -?-?-?-?-?-?-?-?-?-?-?-?- 50 -1 SM- no vb lof good fm no regular ctx co pelvic pressure and discomfrt 11/21/23 -?-?-?-?-?-?-?-?-?-?-?-?- 37w 0d 211 lb 4 oz 128/84 -?-?-?-?-?-?-?-?-?-?-?-?- 140 38 Cephalic 1.5 -?-?-?--?-?-?-?-?-?-?-?-?- 80 JV- no l of, vaginal bleeding, or dec fm. gbs pos NST FHR Rate Baby A Baseline: 130 Variability:: Moderate Accelerations:: 15 x 15 Decelerations:: None NST Reactive:: Yes FHR Category:: Category I Uterine Activity:: 3 minutes ROS Constitutional Constitutional: Denies change in weight, fatigue, fever(s), headache(s), poor appetite or weakness Eyes Eyes: Denies blurry vision, change in vision, floaters, seeing flashes or spots in vision ENT HEENT: Denies dizziness, headache(s), loss taste/smell or sore throat Cardiovascular Cardiovascular: Denies chest pain, dizziness, dyspnea, irregular heart rhythm, lightheadedness, palpitations or rapid heart rate Respiratory/Chest Respiratory/Chest: Denies change in mental status, chest tightness, cough, dyspnea or breast pain Gastrointestinal Gastrointestinal: Denies anorexia, chewing difficulty, constipation, diarrhea or weight changes Genitourinary Genitourinary: Denies difficulty urinating, dysuria, flank pain, genital pain, urinary frequency or urinary urgency Musculoskeletal Musculoskeletal: Denies back pain, difficulty walking, extremity pain, joint pain, muscle cramps or muscle weakness Integumentary Integumentary: Denies lesions or unusual bruising Neurologic Neurologic: Denies abnormal movements, abnormal speech, dizziness, numbness, seizure-like activity, syncope or weakness Psychiatric Psychiatric: Denies behavioral changes, change in appetite, confusion, depression, homicidal ideation, suicidal ideation or suicidal thoughts Endocrine Endocrinology: Denies excessive sweating, polydipsia or polyuria Hematologic/Lymphatic Hematologic/Lymphatic: Denies anemia Allergic/Immunologic Allergic/Immunologic: Denies itchy eyes, lip swelling, throat swelling, tongue swelling or wheezing Vital Signs Vital Signs Vital Signs: 11/26/23 16:55 11/26/23 16:55 11/26/23 17:01 Temperature Temperature Source Pulse Rate 84 86 Respiratory Rate Blood Pressure BP Systolic BP Diastolic Pulse Ox 98 11/26/23 17:01 11/26/23 17:03 11/26/23 17:03 Temperature Temperature Source Pulse Rate 83 Respiratory Rate Blood Pressure 145/88 H BP Systolic 145 BP Diastolic 88 Pulse Ox 98 11/26/23 17:06 11/26/23 17:06 11/26/23 17:11 Temperature Temperature Source Pulse Rate 87 91 Respiratory Rate Blood Pressure BP Systolic BP Diastolic Pulse Ox 98 11/26/23 17:11 11/26/23 17:13 11/26/23 17:13 Temperature Temperature Source Pulse Rate 83 Respiratory Rate Blood Pressure 139/86 H BP Systolic 139 BP Diastolic 86 Pulse Ox 98 11/26/23 17:16 11/26/23 17:16 11/26/23 17:21 Temperature Temperature Source Pulse Rate 88 94 Respiratory Rate Blood Pressure BP Systolic BP Diastolic Pulse Ox 97 11/26/23 17:21 11/26/23 17:23 11/26/23 17:23 Temperature Temperature Source Pulse Rate 83 Respiratory Rate Blood Pressure 133/82 H BP Systolic 133 BP Diastolic 82 Pulse Ox 97 11/26/23 17:26 11/26/23 17:26 11/26/23 17:31 Temperature Temperature Source Pulse Rate 93 95 Respiratory Rate Blood Pressure BP Systolic BP Diastolic Pulse Ox 97 11/26/23 17:31 11/26/23 17:33 11/26/23 17:33 Temperature Temperature Source Pulse Rate 86 Respiratory Rate Blood Pressure 135/81 H BP Systolic 135 BP Diastolic 81 Pulse Ox 98 11/26/23 17:36 11/26/23 17:36 11/26/23 17:41 Temperature Temperature Source Pulse Rate 94 90 Respiratory Rate Blood Pressure BP Systolic BP Diastolic Pulse Ox 98 11/26/23 17:41 11/26/23 17:44 11/26/23 17:44 Temperature Temperature Source Pulse Rate 87 Respiratory Rate Blood Pressure 138/84 H BP Systolic 138 BP Diastolic 84 Pulse Ox 98 11/26/23 17:46 11/26/23 17:46 11/26/23 17:51 Temperature Temperature Source Pulse Rate 84 96 Respiratory Rate Blood Pressure BP Systolic BP Diastolic Pulse Ox 98 11/26/23 17:51 11/26/23 17:54 11/26/23 17:54 Temperature Temperature Source Pulse Rate 81 Respiratory Rate Blood Pressure 136/82 H BP Systolic 136 BP Diastolic 82 Pulse Ox 98 11/26/23 17:56 11/26/23 17:56 11/26/23 18:01 Temperature Temperature Source Pulse Rate 92 85 Respiratory Rate Blood Pressure BP Systolic BP Diastolic Pulse Ox 97 11/26/23 18:01 11/26/23 18:03 11/26/23 18:03 Temperature Temperature Source Pulse Rate 80 Respiratory Rate Blood Pressure 134/82 H BP Systolic 134 BP Diastolic 82 Pulse Ox 98 11/26/23 18:06 11/26/23 18:06 11/26/23 18:11 Temperature Temperature Source Pulse Rate 84 83 Respiratory Rate Blood Pressure BP Systolic BP Diastolic Pulse Ox 98 11/26/23 18:11 11/26/23 18:14 11/26/23 18:14 Temperature Temperature Source Pulse Rate 83 Respiratory Rate Blood Pressure 132/85 H BP Systolic 132 BP Diastolic 85 Pulse Ox 97 11/26/23 18:16 11/26/23 18:16 11/26/23 18:21 Temperature Temperature Source Pulse Rate 94 91 Respiratory Rate Blood Pressure BP Systolic BP Diastolic Pulse Ox 98 11/26/23 18:21 11/26/23 18:23 11/26/23 18:23 Temperature Temperature Source Pulse Rate 79 Respiratory Rate Blood Pressure 128/86 H BP Systolic 128 BP Diastolic 86 Pulse Ox 98 11/26/23 19:20 11/26/23 19:20 11/26/23 19:20 Temperature Temperature Source Temporal Pulse Rate 75 Respiratory Rate Blood Pressure 151/85 H BP Systolic 151 BP Diastolic 85 Pulse Ox 11/26/23 19:20 11/26/23 19:20 11/26/23 20:52 Temperature 97.4 F L Temperature Source Pulse Rate Respiratory Rate 16 Blood Pressure 126/77 H BP Systolic 126 BP Diastolic 77 Pulse Ox 11/26/23 20:52 11/26/23 20:52 11/26/23 20:52 Temperature Temperature Source Temporal Pulse Rate 81 Respiratory Rate 16 Blood Pressure BP Systolic BP Diastolic Pulse Ox 11/26/23 20:52 11/26/23 22:07 11/26/23 22:07 Temperature 97.4 F L Temperature Source Pulse Rate 80 Respiratory Rate Blood Pressure 116/63 BP Systolic 116 BP Diastolic 63 Pulse Ox 11/26/23 22:07 11/26/23 23:00 11/26/23 23:00 Temperature Temperature Source Pulse Rate 75 Respiratory Rate 16 Blood Pressure 115/62 BP Systolic 115 BP Diastolic 62 Pulse Ox 11/26/23 23:00 11/26/23 23:00 11/26/23 23:00 Temperature Temperature Source Temporal Pulse Rate 70 Respiratory Rate Blood Pressure BP Systolic BP Diastolic Pulse Ox 99 11/26/23 23:00 11/26/23 23:00 11/27/23 00:06 Temperature 98.1 F Temperature Source Pulse Rate Respiratory Rate 16 Blood Pressure 124/66 H BP Systolic 124 BP Diastolic 66 Pulse Ox 11/27/23 00:06 11/27/23 00:06 11/27/23 01:07 Temperature Temperature Source Pulse Rate 73 Respiratory Rate 16 Blood Pressure 123/60 H BP Systolic 123 BP Diastolic 60 Pulse Ox 11/27/23 01:07 11/27/23 01:07 11/27/23 01:07 Temperature 98.1 F Temperature Source Pulse Rate 64 Respiratory Rate 16 Blood Pressure BP Systolic BP Diastolic Pulse Ox 11/27/23 02:06 11/27/23 02:06 11/27/23 02:06 Temperature Temperature Source Pulse Rate 63 Respiratory Rate 16 Blood Pressure 140/85 H BP Systolic 140 BP Diastolic 85 Pulse Ox 11/27/23 02:59 11/27/23 02:59 11/27/23 02:59 Temperature Temperature Source Pulse Rate 78 Respiratory Rate 18 Blood Pressure 156/72 H BP Systolic 156 BP Diastolic 72 Pulse Ox 11/27/23 03:01 11/27/23 03:01 11/27/23 03:04 Temperature Temperature Source Pulse Rate 68 Respiratory Rate Blood Pressure 138/82 H BP Systolic 138 BP Diastolic 82 Pulse Ox 100 11/27/23 03:04 11/27/23 03:04 11/27/23 03:06 Temperature Temperature Source Pulse Rate 71 72 Respiratory Rate 18 Blood Pressure BP Systolic BP Diastolic Pulse Ox 11/27/23 03:06 11/27/23 03:09 11/27/23 03:09 Temperature Temperature Source Pulse Rate 63 Respiratory Rate Blood Pressure 123/70 H BP Systolic 123 BP Diastolic 70 Pulse Ox 100 11/27/23 03:09 11/27/23 03:11 11/27/23 03:11 Temperature Temperature Source Pulse Rate 77 Respiratory Rate 16 Blood Pressure BP Systolic BP Diastolic Pulse Ox 99 11/27/23 03:14 11/27/23 03:14 11/27/23 03:15 Temperature Temperature Source Pulse Rate 69 Respiratory Rate Blood Pressure 118/67 117/65 BP Systolic 118 117 BP Diastolic 67 65 Pulse Ox 11/27/23 03:15 11/27/23 03:15 11/27/23 03:15 Temperature Temperature Source Temporal Pulse Rate 76 Respiratory Rate 16 Blood Pressure BP Systolic BP Diastolic Pulse Ox 11/27/23 03:15 11/27/23 03:16 11/27/23 03:16 Temperature 97.2 F L Temperature Source Pulse Rate 77 Respiratory Rate Blood Pressure BP Systolic BP Diastolic Pulse Ox 99 11/27/23 03:19 11/27/23 03:19 11/27/23 03:20 Temperature Temperature Source Pulse Rate 68 Respiratory Rate 16 Blood Pressure 121/62 H BP Systolic 121 BP Diastolic 62 Pulse Ox 11/27/23 03:21 11/27/23 03:21 11/27/23 03:21 Temperature Temperature Source Pulse Rate 66 77 Respiratory Rate Blood Pressure BP Systolic BP Diastolic Pulse Ox 93 11/27/23 03:21 11/27/23 03:25 11/27/23 03:25 Temperature Temperature Source Pulse Rate 71 Respiratory Rate Blood Pressure 139/75 H BP Systolic 139 BP Diastolic 75 Pulse Ox 98 11/27/23 03:25 11/27/23 03:26 11/27/23 03:26 Temperature Temperature Source Pulse Rate 73 Respiratory Rate 18 Blood Pressure BP Systolic BP Diastolic Pulse Ox 99 11/27/23 03:30 11/27/23 03:30 11/27/23 03:30 Temperature Temperature Source Pulse Rate 65 Respiratory Rate 16 Blood Pressure 141/69 H BP Systolic 141 BP Diastolic 69 Pulse Ox 11/27/23 03:31 11/27/23 03:31 11/27/23 03:34 Temperature Temperature Source Pulse Rate 67 Respiratory Rate Blood Pressure 137/67 H BP Systolic 137 BP Diastolic 67 Pulse Ox 99 11/27/23 03:34 11/27/23 03:34 11/27/23 03:36 Temperature Temperature Source Pulse Rate 58 L 69 Respiratory Rate 16 Blood Pressure BP Systolic BP Diastolic Pulse Ox 11/27/23 03:36 11/27/23 03:37 11/27/23 03:37 Temperature Temperature Source Pulse Rate 75 Respiratory Rate Blood Pressure 135/73 H BP Systolic 135 BP Diastolic 73 Pulse Ox 99 11/27/23 03:37 11/27/23 04:02 11/27/23 04:02 Temperature Temperature Source Pulse Rate 71 Respiratory Rate 16 Blood Pressure 138/78 H BP Systolic 138 BP Diastolic 78 Pulse Ox 11/27/23 04:02 11/27/23 04:02 11/27/23 04:02 Temperature 98.0 F Temperature Source Temporal Pulse Rate Respiratory Rate 16 Blood Pressure BP Systolic BP Diastolic Pulse Ox Weight Weight: 209 lb 4 oz Body Mass Index (BMI) 33.7 Physical Exam Const alert, oriented x3 and no apparent distress General Appearance: cooperative Orientation / Consciousness: awake HEENT normocephalic Neck full ROM Lymph Lymphatic: no lymphadenopathy noted Chest inspection of chest normal Resp normal respiratory effort and normal air movement Effort and Inspection: able to speak in complete sentences and symmetric chest movement GI soft to palpation and non-tender Inspection: gravid Palpation: soft; Negative for tender external exam normal Manual OB Exam: dilated 4, effaced 80 and station -2 Back/Spine normal to inspection Extremity normal to inspection and full ROM Skin no rashes or lesions noted Psych mental status grossly normal Appearance: grossly normal Speech: normal speech Labs Labs Labs: Blood Type O POSITIVE Antibody Screen NEGATIVE Hct 35.9 % (37-47) L Hgb 12.1 g/dL (12.0-15.0) Pap Smear Negative Obstetrics Ultrasound Syphilis Total Ab Non-reactive Rubella IgG Antibody Reactive (Nonreactive) Hep Bs Antigen Non-Reactive (Nonreactive) Hepatitis C Antibody Non-Reactive (Nonreactive) Chlamydia DNA (MADELINE) Negative (Negative) N.gonorrhoeae DNA (MADELINE) Negative (Negative) HIV 1&2 Antibody Non-Reactive (Nonreactive) Glucose 1 Hr 50 gm 138 mg/dL (70-140) Gest Glucose Tolerance MG/DL Assessment & Plan (1) GBS (group B Streptococcus carrier), +RV culture, currently : COMMENT: Treat in labor-ALLERGIC TO PCN (2) Abnormal glucose level: COMMENT: 3 HR GTT normal (3) Anxiety and depression: COMMENT: support given celexa buspar counseling encouraged; stable (4) Supervision of high-risk : QUALIFIERS: Trimester: third trimester Qualified Code(s): O09.93 - Supervision of high risk , unspecified, third trimester COMMENT: PRR, , JANET 12/12/23, boy TOBY Perez, José (5) : QUALIFIERS: Weeks of gestation: 37 weeks Qualified Code(s): Z3A.37 - 37 weeks gestation of COMMENT: nipt low risk per patient, carrier declined. afp declined, nl anatomy (6) Family history of breast cancer in mother: COMMENT: diagnosed age 53, dec age 59. Negative genetics. (7) Family history of Mauro syndrome: COMMENT: José's younger sister (8) Family history of neural tube defect: COMMENT: Cousin's 2 children have SB, declined afp testing. (9) Hypothyroidism: QUALIFIERS: Hypothyroidism type: unspecified Qualified Code(s): E 03.9 - Hypothyroidism, unspecified COMMENT: check labs q trimester (10) PIH ( induced hypertension): COMMENT: IOL (11) Encounter for induction of labor: PLAN: Patient presents IOL, plan management for with pitocin/AROM. Pain management: plans epidural. GBS positive. Management of any complications: none I have reviewed the [facility] and made any clinically relevant updates. Dr Morrison aware of assessment and plan. Agrees with admission and induction of patient for PIH Charges/Coding Multi Select Codes Urinary/Genital Urinary/Genital CPT Codes: No Charge
[2023-11-27] MEDS: Lactated Ringers 1,000 ML 200 ML IV ×2 (05:19→10:30)
--- NOTE | 2023-11-27 05:20 | PN_ITS ---
Progress Note comfortable with epidural, persistent headache current tracing: FHT: 130 Moderate variability reactive no decelerations category I tracing [place]: 2-3 Contractions Membranes:ruptured clear SVE:4/80/-2 A/P: tylenol for headache Continue with position changes Titrate pitocin per protocol Epidural per anesthesia Ancef for GBS prophylaxis Anticipate Dr Morrison aware of above assessment and agrees with plan of care Assessment & Plan Assessment/Plan (1) Encounter for induction of labor: (2) PIH ( induced hypertension): (3) GBS (group B Streptococcus carrier), +RV culture, currently : (4) Abnormal glucose level: (5) Anxiety and depression: (6) Supervision of high-risk : QUALIFIERS: Trimester: third trimester Qualified Code(s): O09.93 - Supervision of high risk , unspecified, third trimester (7) : QUALIFIERS: Weeks of gestation: 37 weeks Qualified Code(s): Z3A.37 - 37 weeks gestation of (8) Family history of breast cancer in mother: (9) Family history of Mauro syndrome: (10) Family history of neural tube defect: (11) Hypothyroidism: QUALIFIERS: Hypothyroidism type: unspecified Qualified Code(s): E03.9 - Hypothyroidism, unspecified Multi Select Codes Urinary/Genital Urinary/Genital CPT Codes: No Charge
[2023-11-27] MEDS: Levothyroxine 112 MCG Tablet PO (07:00)
[2023-11-27] MEDS: Ondansetron 4 MG/2 ML Vial IV (10:11)
[2023-11-27] MEDS: Oxytocin 15 Units/NS 250ml 15 UNITS/250 ML IV.SOLN 334 UNITS IV (11:21)
--- NOTE | 2023-11-27 11:48 | OP.PCM_ITS ---
Assessment & Plan (1) Vaginal delivery: COMMENT: KW IOL PIH Boy (2) Encounter for induction of labor: (3) PIH ( induced hypertension): COMMENT: IOL (4) GBS (group B Streptococcus carrier), +RV culture, currently : COMMENT: Treat in labor-ALLERGIC TO PCN (5) Abnormal glucose level: COMMENT: 3 HR GTT normal (6) Anxiety and depression: COMMENT: support given celexa buspar counseling encouraged; stable (7) Supervision of high-risk : QUALIFIERS: Trimester: third trimester Qualified Code(s): O09.93 - Supervision of high risk , unspecified, third trimester COMMENT: PRR, , JANET 12/12/23, boy PC Ana, José (8) : QUALIFIERS: Weeks of gestation: 37 weeks Qualified Code(s): Z3A.37 - 37 weeks gestation of COMMENT: nipt low risk per patient, carrier declined. afp declined, nl anatomy (9) Family history of breast cancer in mother: COMMENT: diagnosed age 53, dec age 59. Negative genetics. (10) Family history of Mauro syndrome: COMMENT: José's younger sister (11) Family history of neural tube defect: COMMENT: Cousin's 2 children have SB, declined afp testing. (12) Hypothyroidism: QUALIFIERS: Hypothyroidism type: unspecified Qualified Code(s): E03.9 - Hypothyroidism, unspecified COMMENT: check labs q trimester Maternal Data Information JANET Calculator Estimated Delivery Date Method Current WG Current Estimate 12/12/23 LMP (Certain) 37w 6d Final JANET: 11/27/23 Final JANET Source: US >20 weeks Gestational age: 37.6 weeks Vaginal Delivery Maternal Presentation Maternal Presentation: Medically Indicated Induction Maternal Presentation: Progressed well to 10cm dilated and made steady progress with effective maternal pushing. Delivered the head in DONNA presentation. The head was delivered atraumatically and no nuchal cord was identified. The anterior and posterior shoulders delivered without complication followed by the rest of the and the infant was placed on the maternal abdomen. Delayed cord clamping was employed for approximately 3 minutes. Cord was clamped and cut and gentle traction was applied to the cord and the placenta delivered spontaneously. Immediately following, it was noted to be intact with a 3 vessel cord. The perineum and vagina were inspected and noted to have no laceration. EBL was 200cc. Patient and tolerated delivery well. Apgars 7/8. Dr Hensley notified of vaginal delivery and orders reviewed. Physician agrees with current plan of care. Type of Induction: Pitocin Medical Reason for Induction: Gestational Hypertension Operative Information Date of Procedure: 11/27/23 Pre-Operative Diagnosis: See AP comments Post-Operative Diagnosis: Same Surgery / Procedure Performed: Spontaneous Vaginal Delivery registered nurse surgical services #1: Bekah Knowles Type of Anesthesia: Epidural Estimated Blood Loss: 200 Time of Delivery: 11:21 Findings Presentation: Vertex Amniotic Membrane Rupture Type: Artificial Amniotic Fluid Description: Clear Placental Delivery Description: Spontaneous Cord Vessel Description: 3 Vessels Cord Entanglement: None A Gender: Male (1 minute): 7 (5 minute): 8 Delayed Cord Clamping: Yes Post Vaginal Delivery Medications Given After Delivery: IV Pitocin Episiotomy Description: None Laceration: None Complication Complications: None Multi Select Codes Urinary/Genital Urinary/Genital CPT Codes: 80229 Vaginal Delivery [facility]
--- NOTE | 2023-11-27 11:51 | DCINST_ITS ---
Discharge Instructions Diet Discharge Diet: No restrictions Activity Discharge Activity: Return to Normal Activity May resume sexual activity in: 6-8 weeks Dressing / Incision Call your doctor if you observe: Fever of 101 or Higher, Coldness, Increased Pain, Numbness or Tingling, Change in Color, Inability to urinate, Inability to have a bowel movement, Using more than 1 pad per hour, Shortness of breath, Dizziness, Fainting spells, Swelling in the ankles, Chest pain, Increased palpitations (irregular heartbeat), Calf discomfort and Uncontrolled pain Follow Up Care Please Follow Up With: Bekah Knowles CNM When: Please call the office to schedule your follow up appointment in 6 weeks. If you had high blood pressure please call to schedule an appointment in 2 weeks. Test Results: Test results from this visit will be discussed in further detail at your follow- up appointment, if applicable. Discharge Plan Admission Admit Date/Time: 11/26/23 18:44 Attending Provider: Bekah Knowles Primary Care Provider: Caron Summers Discharge Orders/Prescriptions Prescriptions: No Action cranberry 400 mg capsule 400 mg PO DAILY Rx Instructions: administer with a meal levothyroxine 112 mcg tablet 112 mcg PO DAILY Qty: 90 3RF Alive Daily Support 180 mcg-25 mg- 25 mg tablet,chewable 1 tab PO citalopram 20 mg tablet 20 mg PO DAILY Qty: 90 3RF buspirone 5 mg tablet 5 mg PO BID Qty: 180 3RF Unisom (doxylamine) 25 mg tablet 25 mg PO QHS PRN (Reason: insomnia) prochlorperazine maleate [Compazine] 10 mg tablet 10 mg PO Q8H PRN (Reason: nausea and vomiting) Qty: 90 3RF Referrals / Follow Up: Caron Summers MD [Primary Care Provider] -
[2023-11-27] MEDS: Acetaminophen 500 MG Tablet 1000 MG PO (18:13)
[2023-11-27] MEDS: busPIRone 5 MG Tablet PO (21:57)
[2023-11-28] VITALS (9 sets, daily range): BP systolic 133–141; BP diastolic 63–86; PULSE 69–88; RESP 16–18; TEMP 36.5–36.8; O2SAT 96–98
[2023-11-28] MEDS: Levothyroxine 112 MCG Tablet PO (08:25)
--- NOTE | 2023-11-28 08:33 | PCM.PN.BLA ---
Progress Note patient is laying in bed comfortably. no complaints. wants to go home if possible. lochia is mild. Physical Exam Const alert, oriented x3 and no apparent distress General Appearance: cooperative and comfortable Resp normal respiratory effort Cardio regular rate GI normal to inspection, nondistended, normoactive bowel sounds GI Narrative: uterus is firm below umbilicus Palpation: soft Back/Spine no CVA tenderness and thoraco-lumbar ROM normal Extremity normal to inspection, no clubbing, cyanosis or edema, no calf tenderness and no pedal edema Psych mental status grossly normal, thought process normal, cooperative, affect normal, speech normal, activity/motor behavior normal, denies homicidal ideation and denies suicidal ideation Assessment & Plan Assessment/Plan (1) Vaginal delivery: (2) Encounter for induction of labor: (3) PIH ( induced hypertension): (4) GBS (group B Streptococcus carrier), +RV culture, currently : (5) Abnormal glucose level: (6) Anxiety and depression: (7) Supervision of high-risk : QUALIFIERS: Trimester: third trimester Qualified Code(s): O09.93 - Supervision of high risk , unspecified, third trimester (8) : QUALIFIERS: Weeks of gestation: 37 weeks Qualified Code(s): Z3A.37 - 37 weeks gestation of (9) Family history of breast cancer in mother: (10) Family history of Mauro syndrome: (11) Family history of neural tube defect: (12) Hypothyroidism: QUALIFIERS: Hypothyroidism type: unspecified Qualified Code(s): E03.9 - Hypothyroidism, unspecified PLAN: Plan plan for dc to home later today if ok with the shipping supervisor
[2023-11-28] MEDS: Ibuprofen 600 MG Tablet PO (09:57)
[2023-11-28] MEDS: busPIRone 5 MG Tablet PO (12:09)
[2023-11-28] MEDS: Citalopram 20 MG Tablet PO (12:09)
--- NOTE | 2023-11-29 12:06 | CASEMGMT ---
Social Work Assessment Labor and Delivery Unit Patient Address: [address] [place] [address] Phone number: [phone] Date of Referral: 11/28/23 Time of Referral:? 1012 Referred By: Dr. Moreno Date of Intervention: ?11/29/23? Time of Intervention:? 1000 Reason for Referral:? hx depression and anxiety Sw completed chart review and acknowledges social work consult due to maternal mental health history. Sw presented to bedside and introduced self to mother of baby (GARTH- Margaret) and father of baby (FOCandelario- José). Sw explained role and completed psychosocial assessment. History obtained from: medical records, MOB and FOB Household composition: Currently residing in the family home is GARTH, JADE, their 3 year old daughter- Ana and now baby when ready for discharge. Parents report their housing is safe and secure. Patient's parent/guardian status:?GARTH states that she and JADE met at the same [facility]dhist and have been together for 7 years, almost 6. No concerns reported of domestic violence or intimate partner violence. ? Medical History: ?GARTH is 33 year old female who is 2, para 1- now 2 following labor and delivery of . GARTH received routine care during with [facility]. GARTH presented to hospital for an induction of labor and delivered baby via vaginal delivery on 11/27/23 at 37 weeks gestation. Baby boy, Clinton Díaz, was born weighing 8lb 6oz with apgars of 7 and 8 at one and five minutes of life, respectfully. GARTH is breast feeding and states that it is going well. Baby will be followed by for pediatrics. Educational Status:? FOB has an associates degree and GARTH has some college. No difficulties with reading, learning or comprehension. Financial Status: Both parents are gainfully employed outside of the home. 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 Infant Supplies:?? Parents have obtained all necessary baby supplies, including: car seat, safe sleep space, clothes, diapers and wipes. Childcare/Caregiver(s):? MOB will be the primary caregiver to baby along with FOB when he is not working. When both parents are working outside of the home they have friends who assist with childcare. Transportation:?? Both parents have reliable means of transportation. No barriers at this time. Programs/Agencies Involved: GARTH is connected to [facility] and has a counselor that she is able to get scheduled with anytime that she needs. ?? Children Services/Legal Issues:???No history of children services involvement, no issues or concerns warranting referral to be made at this time. Behavioral Health Issues: ??Mental Health History:??MOB states that she has been diagnosed with anxiety and depression. MOB states that she is prescribed citalopram and buspar. MOB states that her first baby was born during and her mother from cancer within that same year. MOB states that she has always struggled with some anxiety and was prescribed her medications before her daughter was born. GARTH states that she utilizes healthy and appropriate coping skills and has FOB who is a good support to her. ? Substance Use History:?Parents deny substance use prior to and during . ? Family History:?MOB states that her mother had anxiety, but was not officially diagnoses. No other family mental health history or substance use history. ? Drug Screens: ??No drug screens observed in chart review. Family/Social Stressors:?Parents deny any issues, concerns or stressors at this time. Support Systems: GARTH states that JADE, her father, siblings and FOCandelario's family are all her biggest supports. MOB states that any any one point in time she would be able to reach out to someone if she needed something or needed someone to talk to. Depression/Shaken Baby/Safe Sleeping:? Mari educated parents to signs and symptoms of baby blues and mood and anxiety disorders. MOB states that she is familiar with signs and symptoms to be on the lookout for. FOB states that he would be able to recognize if MOB were struggling and would know how to help and support her. Mari educated parents on shaken baby prevention and ABCs of safe sleep. Parents were provided to educational materials on these topics, as well as Help Me Grow, [facility] resource list and mood/ anxiety disorders. ASSESSMENT:? MOB and baby admitted following labor and delivery. MOB with mental health history positive for anxiety and depression. MOB openly talkative about her mental health history as well as the impact that her mother's passing had on her period after her first baby was born. MOB has support from FOB and other natural resources. Parents have obtained everything they need for baby. MOB was observed to provide hands on loving and appropriate care to baby. PLAN:? MOB and baby to be discharged when medically ready. ?No other services requested or indicated. Luisa Keyes, ROOF TECHNICIAN, CHILD CENTER ASSISTANT
== END 2023-11-28 15:20 | disposition home or self-care (01) | DRG 807 ==
LOC: WPOUT 18:54 → WP 18:54
PROVIDERS: Admitting Provider Advanced Practice Midwife; PCP Internal Medicine; Visit Provider Advanced Practice Midwife
DX: O13.4 Gestational [pregnancy-induced] hypertension without significant proteinuria, complicating childbirth (principal); Z37.0 Single live birth; O99.344 Other mental disorders complicating childbirth; E03.9 Hypothyroidism, unspecified; F32.A Depression, unspecified; F41.9 Anxiety disorder, unspecified; E78.5 Hyperlipidemia, unspecified; O36.8130 Decreased fetal movements, third trimester, not applicable or unspecified; Z79.890 Hormone replacement therapy; O99.284 Endocrine, nutritional and metabolic diseases complicating childbirth; Z87.891 Personal history of nicotine dependence; Z3A.37 37 weeks gestation of pregnancy; O99.814 Abnormal glucose complicating childbirth; O99.824 Streptococcus B carrier state complicating childbirth; Z80.3 Family history of malignant neoplasm of breast; Z82.79 Family history of other congenital malformations, deformations and chromosomal abnormalities; Z82.0 Family history of epilepsy and other diseases of the nervous system
CPT/HCPCS: 59025; 59050; 82565; 82570; 84156; 84450; 84460; 84550; 85027; 86780; 86850; 86900; 86901; 99221; J7120; G0378; J2405

== ENCOUNTER → 2024-03-04 | Outpatient (CLI) | payer BC, SELFPAY ==
[2024-03-04 05:17] LABS: T4 Free Direct 1.07 ng/dL (0.76-1.46); Thyroid Stim Hormone (TSH) 0.938 uIU/mL (0.358-3.740)
== END | disposition home or self-care (01) ==
PROVIDERS: PCP Internal Medicine; Referring Provider Internal Medicine Endocrinology, Diabetes & Metabolism; Visit Provider Internal Medicine Endocrinology, Diabetes & Metabolism
DX: E03.9 Hypothyroidism, unspecified (principal)
CPT/HCPCS: 36415; 84439; 84443

== ENCOUNTER → 2024-06-28 | Outpatient (CLI) | payer BC, SELFPAY ==
[2024-06-28 12:24] LABS: Absolute Lymphocyte Count 2.34 X10^3/uL (0.83-4.51); Absolute Neutrophil Count 3.4 X10^3/uL (2.0-7.7); Basophil# 0.03 X10^3/uL; Basophil% 0.5 % (0-1); Eosinophil# 0.23 X10^3/uL; Eosinophils% 3.6 % (0-5); Hemoglobin 13.7 g/dL (12.0-15.0); Lymphocyte # 2.34 X10^3/ul (0.83-4.51); Lymphocyte % 37.1 % (19-41); Mean Corp Hgb Conc 33.4 g/dL (32-36); Mean Corpuscular Hgb 29.3 pg (27.0-32.0); Mean Corpuscular Volume 87.6 fL (81-99); Mean Platelet Vol. 9.2 fl (6.2-12.0); Monocyte# 0.34 X10^3/uL; Monocyte% 5.4 % (0-10); NRBC Flagged by Analyzer 0 % (0-5); Neutrophil # 3.36 X10^3/uL (2.7-7.7); Neutrophil % 53.2 % (47-70); Platelet Count 388 K/mm3 (150-450); RBC Distribution Width CV 12.9 % (11.6-14.6); RBC Distribution Width SD 41.3 fl (35.1-43.9); Red Blood Count 4.68 M/mm3 (4.2-5.4); White Blood Count 6.3 K/mm3 (4.4-11.0)
[2024-06-28 13:03] LABS: ALB/GLOB Ratio 1.7 RATIO (0.9-2.4); AST(SGOT) 18 U/L (<=31); Alanine Aminotransfer ALT/SGPT 22 U/L (<=34); Albumin, Serum 4.4 g/dL (3.5-5.0); Alkaline Phosphatase 102 U/L (35-104); Anion Gap 12 (5-15); BUN 17 mg/dL (4-19); BUN/Creat Ratio 16.8 RATIO (10-20); Calcium,Total 9.5 mg/dL (7.6-11.0); Carbon Dioxide 24.1 mmol/L (21.0-32.0); Chloride 104 mmol/L (98-108); Creatinine, Serum 1.01 mg/dL (0.70-1.20); EST Glomerular Filtration Rate 75 (>60); Globulin 2.6 g/dL (2.2-4.2); Glucose 121 mg/dL (70-99); Potassium 3.9 mmol/L (3.3-5.1); Sodium Level 140 mmol/L (133-145); Total Bilirubin 0.58 mg/dL (0.00-1.30); Vitamin B12 1037 pg/mL (180-914); Vitamin D,25 Hydroxy 48.8 ng/mL (30-100)
== END | disposition home or self-care (01) ==
LOC: BIMLAB 08:32
PROVIDERS: PCP Internal Medicine; Referring Provider Internal Medicine; Visit Provider Internal Medicine
DX: F41.9 Anxiety disorder, unspecified (principal); F32.A Depression, unspecified; E03.9 Hypothyroidism, unspecified
CPT/HCPCS: 36415; 80053; 82306; 82607; 84443; 85025